=== PATIENT | male | born 1975 | race African-American/Black ===

== ENCOUNTER 2017-07-23 00:59 | Emergency (ER) | payer MEDICARE, MEDICAID ==
[2017-07-23] MEDS ORDERED: HYDROcodone/Acetaminophen 5/325 mg Tablet ONE (01:35)
[2017-07-23 01:43] LABS: #Eosinphils 0.2 thou/uL (0.0-0.7); #Lymphocytes 1.3 thou/uL (1.20-3.40); #Monocytes 0.9 thou/uL (0.11-0.59); #Neutrophils 4.9 thou/uL (1.40-6.50); %Basophils 0.3 % (0.0-1.0); %Lymphocytes 17.3 % (21.0-51.0); Hematocrit 48.6 % (42.0-52.0); Mean Platelet Volume 9.7 fL (7.4-10.4); Red Blood Cell (RBC) Count 5.46 mill/uL (4.70-6.10); White Blood Cell (WBC) Count 7.3 thou/uL (4.8-10.8)
[2017-07-23 02:07] LABS: Anion Gap 15 mmol/L (10-20); BUN (Urea Nitrogen) 10 mg/dL (8.9-20.6); Calc. Creatinine Clearance 0 mL/min (70-130); Carbon Dioxide 27 mmol/L (22-29); Chloride 102 mmol/L (98-107); Estimated GFR-MDRD 77
[2017-07-23 02:11] LABS: Lactic Acid - Sepsis 2.2 mmol/L (0.5-2.2)
[2017-07-23] MEDS ORDERED: Indomethacin 25 mg Capsule PO SCH (02:30)
--- NOTE | 2017-07-23 07:47 | RAD ---
4 VIEWS RIGHT KNEE: Date: 07/23/17 COMPARISON: None. HISTORY: Right knee pain that started this morning. FINDINGS: Four views of the right knee show no evidence of acute fracture or dislocation. A small knee effusio n is seen. There is a bipartite patella. Prepatellar soft tissue swelling is seen. No significant de generative changes are present. IMPRESSION: Soft tissue swelling without underlying acute osseous abnormality. POS: [facility]
== END 2017-07-23 02:40 | disposition home or self-care (01) ==
LOC: ERS 00:59
DX: M10.9 Gout, unspecified (principal); I11.0 Hypertensive heart disease with heart failure; I50.9 Heart failure, unspecified; F17.210 Nicotine dependence, cigarettes, uncomplicated
CPT/HCPCS: 36415; 80048; 83605; 85025

== ENCOUNTER 2017-09-21 02:30 | Emergency (ER) | payer MEDICARE, OTHER, MEDICAID ==
[2017-09-21] MEDS ORDERED: Morphine 4 MG/ML VIAL ONE (03:43)
[2017-09-21] MEDS ORDERED: predniSONE 20 MG TAB ONE (03:45)
== END 2017-09-21 04:10 | disposition home or self-care (01) ==
LOC: ERS 02:30
DX: M10.9 Gout, unspecified (principal); E78.00 Pure hypercholesterolemia, unspecified; I11.0 Hypertensive heart disease with heart failure; I50.9 Heart failure, unspecified; F17.210 Nicotine dependence, cigarettes, uncomplicated; Z79.84 Long term (current) use of oral hypoglycemic drugs; Z79.899 Other long term (current) drug therapy
CPT/HCPCS: 96372; J2270; J7506

== ENCOUNTER 2017-10-16 21:44 | Emergency (ER) | payer MEDICARE, OTHER, MEDICAID ==
[2017-10-16] MEDS ORDERED: Morphine 4 MG/ML VIAL ONE (23:05)
== END 2017-10-17 00:08 | disposition home or self-care (01) ==
LOC: ERS 21:44
DX: M10.9 Gout, unspecified (principal); I11.0 Hypertensive heart disease with heart failure; I50.9 Heart failure, unspecified; E11.9 Type 2 diabetes mellitus without complications; E78.00 Pure hypercholesterolemia, unspecified; F17.210 Nicotine dependence, cigarettes, uncomplicated
CPT/HCPCS: 96372; J2270

== ENCOUNTER 2017-10-19 14:27 | Emergency (ER) | payer MEDICARE, MEDICAID | END 2017-10-19 18:21 | disposition home or self-care (01) | LOC: ERS 14:27 | DX: T78.40XA Allergy, unspecified, initial encounter (principal); M10.9 Gout, unspecified; I11.0 Hypertensive heart disease with heart failure; I50.9 Heart failure, unspecified; E78.00 Pure hypercholesterolemia, unspecified; E10.9 Type 1 diabetes mellitus without complications; F17.210 Nicotine dependence, cigarettes, uncomplicated; Z79.899 Other long term (current) drug therapy | CPT/HCPCS: 99282 ==

== ENCOUNTER 2017-10-22 21:12 | Emergency (ER) | payer MEDICARE, MEDICAID ==
[2017-10-22] MEDS ORDERED: predniSONE 20 MG TAB ONE (22:00)
== END 2017-10-22 21:55 | disposition home or self-care (01) ==
LOC: ERS 21:12
DX: R21 Rash and other nonspecific skin eruption (principal); M10.9 Gout, unspecified; I11.0 Hypertensive heart disease with heart failure; I50.9 Heart failure, unspecified; E78.00 Pure hypercholesterolemia, unspecified; E11.9 Type 2 diabetes mellitus without complications; F17.210 Nicotine dependence, cigarettes, uncomplicated
CPT/HCPCS: 99282; J7506

== ENCOUNTER 2017-11-10 12:53 | Outpatient (CLI) | payer MEDICARE, MEDICAID | END 2017-11-10 12:54 | disposition home or self-care (01) | LOC: BICULT 12:53 | PROVIDERS: ATTEND Internal Medicine | DX: R31.0 Gross hematuria (principal); R10.9 Unspecified abdominal pain; J44.9 Chronic obstructive pulmonary disease, unspecified; I51.7 Cardiomegaly; N28.1 Cyst of kidney, acquired | CPT/HCPCS: 71046; 76770 ==

== ENCOUNTER 2017-11-15 15:10 | Emergency (ER) | payer MEDICARE, MEDICAID ==
--- NOTE | 2017-11-15 16:34 | RAD ---
RIGHT HAND THREE VIEWS: 11/15/17 HISTORY: Right hand swelling. FINDINGS: Ulna negative variant is noted. Cortical remodeling at the base of the fifth metacarpal has the appea melina of an old fracture. No acute fracture, dislocation, or radiopaque foreign bodies are apparent. Soft tissue swelling overlies the dorsum of the distal metacarpals. IMPRESSION: 1. Soft tissue swelling. 2. Suspected old injury of the fifth metacarpal. POS: [facility]
== END 2017-11-15 17:38 | disposition home or self-care (01) ==
LOC: ERS 15:10
DX: S60.221A Contusion of right hand, initial encounter (principal); I11.0 Hypertensive heart disease with heart failure; I50.9 Heart failure, unspecified; E11.9 Type 2 diabetes mellitus without complications; E78.5 Hyperlipidemia, unspecified; M10.9 Gout, unspecified; F17.210 Nicotine dependence, cigarettes, uncomplicated; Z71.6 Tobacco abuse counseling; W22.8XXA Striking against or struck by other objects, initial encounter
CPT/HCPCS: 99406

== ENCOUNTER 2017-12-13 17:32 | Inpatient (IN) | payer MEDICARE, MEDICAID ==
[2017-12-13 18:07] LABS: #Basophils 0.1 thou/uL (0.0-0.2); #Eosinphils 0.1 thou/uL (0.0-0.7); #Lymphocytes 1.4 thou/uL (1.20-3.40); #Monocytes 0.4 thou/uL (0.11-0.59); #Neutrophils 2.6 thou/uL (1.40-6.50); %Basophils 1.5 % (0.0-1.0); %Eosinophils 2.6 % (0.0-10.0); %Lymphocytes 31.3 % (21.0-51.0); %Neutrophils 55.6 % (42.0-75.0); Hemoglobin 14.1 g/dL (14.0-18.0); Mean Corpuscular HGB CONC 34.4 g/dL (32.0-36.0); Mean Corpuscular Hemoglobin 30.5 pg (27.0-31.0); Mean Corpuscular Volume 88.7 fl (80.0-94.0); Platelet Count 143 thou/uL (130-400); RBC Distribution Width 12.9 % (11.5-14.5); Red Blood Cell (RBC) Count 4.61 mill/uL (4.70-6.10); White Blood Cell (WBC) Count 4.6 thou/uL (4.8-10.8)
--- NOTE | 2017-12-13 18:22 | RAD ---
CHEST ONE VIEW 12/13/17 HISTORY: Chest pain. COMPARISON: Chest radiograph 11/10/17. FINDINGS: Heart size is markedly enlarged. Small effusions. Moderate interstitial and alveolar edema. IMPRESSION: Findings suggesting congestive heart failure with cardiomegaly, effusions, and moderate edema. POS: [facility]
[2017-12-13 18:27] LABS: ALT (SGPT) 15 U/L (8-55); AST (SGOT) 31 U/L (5-34); Albumin 4.3 g/dL (3.5-5.0); Alkaline Phosphatase 44 U/L (40-150); Anion Gap 14 mmol/L (10-20); BUN (Urea Nitrogen) 15 mg/dL (8.9-20.6); Bilirubin, Total 0.9 mg/dL (0.2-1.2); CK (CPK) 175 U/L (30-200); Calc. Creatinine Clearance 0 mL/min (70-130); Calcium 10.1 mg/dL (7.8-10.44); Carbon Dioxide 24 mmol/L (22-29); Chloride 104 mmol/L (98-107); Estimated GFR-MDRD 82; Globulin 3.3 g/dL (2.4-3.5); Glucose 115 mg/dL (70-105); Lipase 20 U/L (8-78); Potassium 4.9 mmol/L (3.5-5.1); Protein, Total 7.6 g/dL (6.0-8.3); Sodium 137 mmol/L (136-145)
[2017-12-13 18:32] LABS: Troponin I 0.402 ng/mL (< 0.028)
[2017-12-13] MEDS ORDERED: Enoxaparin Sodium 100 MG/ML SYRINGE ONE (19:23)
[2017-12-13] MEDS ORDERED: Aspirin 325 MG TAB ONE (19:23)
[2017-12-13 21:46] LABS: Critical Call Chem Troponin I RESULT DECREASING; Troponin I 0.401 ng/mL (< 0.028)
[2017-12-13 22:10] VITALS: BMI 33.7
[2017-12-13] MEDS ORDERED: Ondansetron HCl/PF 4 MG/2 ML Vial IVP PRN (22:28)
[2017-12-13] MEDS ORDERED: Ondansetron ODT 4 MG TAB SL PRN (22:28)
[2017-12-13] MEDS ORDERED: Nitroglycerin 0.4 MG TAB (25 Tab Bottle) SL PRN (23:02)
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
[2017-12-14 01:01] LABS: Critical Call Chem Troponin I RESULT DECREASING; Troponin I 0.344 ng/mL (< 0.028)
[2017-12-14 05:26] LABS: #Eosinphils 0.1 thou/uL (0.0-0.7); #Lymphocytes 1.6 thou/uL (1.20-3.40); #Monocytes 0.5 thou/uL (0.11-0.59); #Neutrophils 2.5 thou/uL (1.40-6.50); %Eosinophils 2.8 % (0.0-10.0); %Monocytes 9.9 % (0.0-10.0); %Neutrophils 52.3 % (42.0-75.0); Hemoglobin 14.3 g/dL (14.0-18.0); Mean Corpuscular HGB CONC 34.4 g/dL (32.0-36.0); Mean Corpuscular Hemoglobin 31.3 pg (27.0-31.0); Mean Platelet Volume 10.7 fL (7.4-10.4); Platelet Count 143 thou/uL (130-400); RBC Distribution Width 12.7 % (11.5-14.5); Red Blood Cell (RBC) Count 4.59 mill/uL (4.70-6.10); White Blood Cell (WBC) Count 4.8 thou/uL (4.8-10.8)
[2017-12-14 05:37] LABS: Anion Gap 12 mmol/L (10-20); BUN (Urea Nitrogen) 16 mg/dL (8.9-20.6); Calc. Creatinine Clearance 121 mL/min (70-130); Carbon Dioxide 28 mmol/L (22-29); Cardiac Risk 5.1 (Less than 4.5); Chloride 103 mmol/L (98-107); Cholesterol 158 mg/dl (< 200 Desired); Estimated GFR-MDRD 78; Glucose 170 mg/dL (70-105); HDL Cholesterol 31 mg/dL (>60 Neg Risk); LDL Cholesterol, Calculated 66 mg/dL; Potassium 3.6 mmol/L (3.5-5.1); Sodium 139 mmol/L (136-145); Triglycerides 304 mg/dL (Less than 150)
[2017-12-14 06:15] LABS: Digoxin 0.44 ng/mL (0.8-2.0)
[2017-12-14] MEDS ORDERED: Sacubitril 49 MG/Valsartan 51 MG TABLET PO SCH (09:00)
[2017-12-14] MEDS ORDERED: Furosemide 20 MG TAB PO SCH (09:00)
[2017-12-14] MEDS ORDERED: Enoxaparin Sodium 120 MG/0.8 ML SYRINGE SC SCH (09:00)
[2017-12-14] MEDS: Potassium Chloride 10 MEQ TAB PO SCH (09:24)
[2017-12-14] MEDS: Spironolactone 25 MG TAB PO SCH (09:24)
[2017-12-14] MEDS: Carvedilol 25 MG TAB PO SCH ×2 (09:24→17:06)
[2017-12-14] MEDS: Famotidine/PF 20 mg/2ml Vial SLOW IVP SCH ×2 (09:25→21:08)
[2017-12-14] MEDS: Digoxin 0.125 MG TAB PO SCH (09:25)
[2017-12-14] MEDS: Aspirin 81 mg Enteric Coated Tablet PO SCH (09:25)
[2017-12-14] MEDS ORDERED: Dextrose 5% in Water 1,000 ML IV PRN (13:25)
[2017-12-14] MEDS ORDERED: Dextrose 50% Abboject 50 ML SYRINGE SLOW IVP PRN (13:25)
[2017-12-14] MEDS: Furosemide 40 MG/4 ML VIAL SLOW IVP SCH (14:04)
--- NOTE | 2017-12-14 14:41 | PDOC.PN ---
- Subjective Encounter Start Date: 12/14/17 Encounter Start Time: 08:00 Pt seen for followup re: NSTEMI. Denies chest pain, reports SOBOE. No nausea or vomiting. - Objective Resuscitation Status: Resuscitation Status FULL:Full Resuscitation MAR Reviewed: Yes Vital Signs & Weight: Vital Signs (12 hours) Temp Pulse Resp BP BP Pulse Ox 12/14/17 09:20 97.9 F 88 20 103/82 93 L 12/14/17 04:00 98.0 F 87 20 121/78 97 Weight Weight 240 lb 9.6 oz I&O: 12/13/17 12/14/17 12/15/17 06:59 06:59 06:59 Intake Total 1200 Output Total 300 Balance 900 Result Diagrams: 12/14/17 04:50 12/14/17 04:50 EKG Reviewed by me: Yes (Tele: A-paced rhythm) Phys Exam - Physical Examination Obese HEENT: PERRLA, moist MMs, sclera anicteric, oral pharynx no lesions Neck: no nodes, no JVD, supple, full ROM Respiratory: no wheezing, no rhonchi Bibasal crackles Cardiovascular: RRR, no rub Gastrointestinal: soft, non-tender, no distention, positive bowel sounds Musculoskeletal: pulses present Neurological: moves all 4 limbs Psychiatric: normal affect, A&O x 3 Skin: no rash Dx/Plan (1) NSTEMI (non-ST elevated myocardial infarction) Code(s): I21.4 - NON-ST ELEVATION (NSTEMI) MYOCARDIAL INFARCTION Status: Acute (2) Acute on chronic systolic (congestive) heart failure Code(s): I50.23 - ACUTE ON CHRONIC SYSTOLIC (CONGESTIVE) HEART FAILURE Status : Acute (3) Tobacco abuse Code(s): Z72.0 - TOBACCO USE Status: Chronic (4) Gout Code(s): M10.9 - GOUT, UNSPECIFIED Status: Chronic Qualifiers: Gout site: unspecified site Chronicity: unspecified (5) Nonischemic cardiomyopathy Code(s): I42.9 - CARDIOMYOPATHY, UNSPECIFIED Status: Chronic - Plan * . Continue Lovenox, aspirin. Await cardiology consult. IV furosemide. Pt counseled re: tobacco cessation. Monitor vital signs, titrate antihypertensives as needed. Review of Systems - Review of Systems Constitutional: negative: fever, chills, sweats, weakness, malaise Respiratory: SOB with Excertion. negative: Cough, Dry, Shortness of Breath, Hemoptysis, Pleuritic Pain, Sputum, Wheezing Cardiovascular: negative: chest pain, palpitations, orthopnea, paroxysmal nocturnal dyspnea, edema, light headedness Gastrointestinal: negative: Nausea, Vomiting, Abdominal Pain, Diarrhea, Constipation, Melena, Hematochezia Genitourinary: negative: Dysuria, Frequency, Incontinence, Hematuria, Retention - Medications/Allergies Allergies/Adverse Reactions: Allergies Allergy/AdvReac Type Severity Reaction Status Date / Time No Known Allergies Allergy Verified 12/13/17 22:01 Medications: Current Medications Aspirin (Ecotrin) 81 mg PO DAILY [facility] Last Admin: 12/14/17 09:25 Dose: 81 mg Atorvastatin Calcium (Lipitor) 10 mg PO [facility]) [facility] Last Admin: 12/14/17 09:24 Dose: 25 mg Dextrose/Water (Dextrose 50%) 25 gm SLOW IVP PRN PRN PRN Reason: Hypoglycemia Digoxin (Lanoxin) 0.125 mg PO DAILY [facility] Last Admin: 12/14/17 09:25 Dose: 0.125 mg Enoxaparin Sodium (Lovenox) 110 mg SC 0900,2100 [facility] Famotidine (Pepcid) 20 mg SLOW IVP Q12HR [facility] Last Admin: 12/14/17 09:25 Dose: 20 mg Furosemide (Lasix) 40 mg SLOW IVP 0600,1400 [facility] Last Admin: 12/14/17 14:04 Dose: 40 mg [facility]) [facility] Glucagon (Glucagon) 1 mg IM PRN PRN PRN Reason: Hypoglycemia Dextrose/Water (D5w) 1,000 mls @ 0 mls/hr IV .Q0M PRN; As Directed PRN Reason: Hypoglycemia Insulin Human Lispro (Humalog) 0 units SC .MILD SLIDING SCALE PRN PRN Reason: Mild Correctional Scale [facility]Gl[facility]ophage) [facility] Morphine Sulfate (Morphine) 2 mg SLOW IVP Q5MIN PRN PRN Reason: Chest Pain Nitroglycerin (Nitrostat) 0.4 mg SL Q5MIN PRN PRN Reason: Chest Pain Potassium Chlor[facility] ([facility]-Con 10) [facility] Admin: 12/14/17 09:24 Dose: 10 meq Sacubitril/Valsartan (Entresto 49 Mg-51 Mg Tablet) 1 tab PO DAILY [facility] Last Admin: 12/14/17 09:25 Dose: 1 tab Sodium Chloride (Flush - Normal Saline) 10 ml IVF Q12HR BRANDI Sodium Chloride (Flush - Normal Saline) 10 ml IVF PRN PRN PRN Reason: Saline Flush Spironolactone (Aldactone) 25 mg PO [facility] Last Admin: 12/14/17 09:24 Dose: 25 mg
[2017-12-14] MEDS: glipiZIDE 5 MG TAB PO SCH (15:11)
[2017-12-14] MEDS: metFORMIN 500 MG TAB PO SCH ×2 (15:11→17:06)
[2017-12-14] MEDS ORDERED: Albuterol Sulfate 2.5 mg/3 ml Neb NEB PRN (20:08)
[2017-12-14] MEDS ORDERED: Atorvastatin Calcium 10 MG TAB PO SCH (21:00)
[2017-12-14] MEDS ORDERED: Famotidine 40 MG/4 ML VIAL SLOW IVP SCH (21:15)
[2017-12-14] MEDS: Sacubitril 49 MG/Valsartan 51 MG TABLET PO SCH (21:22)
[2017-12-14] MEDS: HumaLOG 300 UNITS/3 ML VIAL SC PRN (21:22)
[2017-12-15] MEDS: Furosemide 40 MG/4 ML VIAL SLOW IVP SCH ×2 (05:41→13:56)
[2017-12-15 05:51] LABS: #Eosinphils 0.1 thou/uL (0.0-0.7); #Lymphocytes 1.3 thou/uL (1.20-3.40); #Monocytes 0.4 thou/uL (0.11-0.59); #Neutrophils 3.2 thou/uL (1.40-6.50); %Basophils 0.3 % (0.0-1.0); %Eosinophils 2.2 % (0.0-10.0); %Lymphocytes 26.3 % (21.0-51.0); %Monocytes 7.2 % (0.0-10.0); Hemoglobin 14.1 g/dL (14.0-18.0); Mean Corpuscular HGB CONC 35.3 g/dL (32.0-36.0); Mean Corpuscular Hemoglobin 32.1 pg (27.0-31.0); Mean Corpuscular Volume 90.8 fl (80.0-94.0); Mean Platelet Volume 10.5 fL (7.4-10.4); Platelet Count 144 thou/uL (130-400); RBC Distribution Width 12.8 % (11.5-14.5)
[2017-12-15 05:58] LABS: Anion Gap 12 mmol/L (10-20); BUN (Urea Nitrogen) 15 mg/dL (8.9-20.6); Calc. Creatinine Clearance 120 mL/min (70-130); Calcium 11.2 mg/dL (7.8-10.44); Carbon Dioxide 28 mmol/L (22-29); Chloride 104 mmol/L (98-107); Estimated GFR-MDRD 77; Glucose 173 mg/dL (70-105); Potassium 3.8 mmol/L (3.5-5.1); Sodium 140 mmol/L (136-145)
--- NOTE | 2017-12-15 06:14 | CON ---
DATE OF CONSULTATION: 12/14/2017 PRIMARY CYTOPATHOLOGY TECHNOLOGIST: Dr. Gotti. REASON FOR ADMISSION: Congestive heart failure, chest pain, increased troponin level. HISTORY OF PRESENT ILLNESS: Mr. Watts is a very pleasant 42-year-old gentleman with history of jeison re nonischemic cardiomyopathy. He came to the hospital last night, says his breathing was not quite as good as usual and some discomfort in his chest. The chest discomfort was mild, but he wondered if perhaps he had fluid in his lungs. Troponin levels were checked and they were mildly elevated, as t hey really always are, but he was admitted for further evaluation and observation. REVIEW OF SYSTEMS: Constitutional: No significant weight gain or loss. Vision: No changes. Heari ng: No changes. Pulmonary: Positive for shortness of breath. Cardiac: As outlined above. Gastro intestinal: No nausea, vomiting, diarrhea. Skin: No rashes. Neurologic: No unilateral weakness o r numbness. Psychiatric: No unusual depression or anxiety. Hematologic: No unusual bruising. Gen itourinary: No burning with urination. PAST MEDICAL HISTORY: 1. Nonischemic cardiomyopathy with ejection fraction 15%-20%. 2. Previous defibrillator. 3. Nonobstructive coronary artery disease. MEDICATIONS: At home included, 1. Entresto. 2. Simvastatin. 3. Carvedilol. 4. Spironolactone. 5. Aspirin. 6. Digoxin. PHYSICAL EXAMINATION: GENERAL: A pleasant 42-year-old gentleman in no distress. VITAL SIGNS: Blood pressure is 143/78, pulse 90 and regular. LUNGS: Clear. CARDIOVASCULAR: Normal S1, normal S2. ABDOMEN: Soft, nontender. EXTREMITIES: No clubbing or cyanosis. There is no edema. SKIN: Warm and dry. PSYCHIATRIC: Mood and affect normal. NEUROLOGIC: Grossly normal. IMAGING: Chest x-ray: Pulmonary vascular congestion. ASSESSMENT: 1. Congestive heart failure, systolic, acute on chronic. 2. Slight increased troponin levels are looking back at the notes, they are always close to this ran ge, this does not represent a myocardial infarction more likely related to heart failure. PLAN: 1. Increase the Entresto. 2. He is on IV diuretics. 3. Probably go home tomorrow. Dr. Gotti will see the patient tomorrow.
[2017-12-15] MEDS ORDERED: Famotidine 40 MG/4 ML VIAL SLOW IVP SCH (09:00)
[2017-12-15] MEDS ORDERED: Enoxaparin Sodium 40 MG/0.4 ML SYRINGE SC SCH (09:00)
[2017-12-15] MEDS: glipiZIDE 5 MG TAB PO SCH (09:44)
[2017-12-15] MEDS: metFORMIN 500 MG TAB PO SCH ×2 (09:44→16:21)
[2017-12-15] MEDS: Potassium Chloride 10 MEQ TAB PO SCH (09:44)
[2017-12-15] MEDS: Carvedilol 25 MG TAB PO SCH ×2 (09:44→16:21)
[2017-12-15] MEDS: Aspirin 81 mg Enteric Coated Tablet PO SCH (09:45)
[2017-12-15] MEDS: Sacubitril 49 MG/Valsartan 51 MG TABLET PO SCH (09:45)
[2017-12-15] MEDS: Digoxin 0.125 MG TAB PO SCH (09:45)
[2017-12-15] MEDS: Spironolactone 25 MG TAB PO SCH (09:45)
[2017-12-15] MEDS: HumaLOG 300 UNITS/3 ML VIAL SC PRN (14:01)
[2017-12-15 16:20] VITALS: BP 116/75; TEMP 97.7
--- NOTE | 2017-12-15 17:40 | EKG ---
Test Reason : Blood Pressure : / mmHG Vent. Rate : 085 BPM Atrial Rate : 085 BPM P-R Int : 220 ms QRS Dur : 132 ms QT Int : 382 ms P-R-T Axes : 063 016 090 degrees QTc Int : 454 ms Dual chamber pacemaker atria sensed ventricular paced When compared with ECG of 13-DEC-2017 17:47, (Unconfirmed) Vent. rate has increased BY [address] Joes MANDUJANO ([id number]) on 12/15/2017 5:39:52 PM Referred By: MARGRET Confirmed By:DR. Jose MANDUJANO
--- NOTE | 2017-12-15 20:27 | DIS ---
PRIMARY CARE PROVIDER: Paola Hernandez NP. DATE OF ADMISSION: 12/13/2017 DATE OF DISCHARGE: 12/15/2017 DISCHARGE DIAGNOSIS: Acute on chronic systolic congestive heart failure. CONDITION OF PATIENT ON THE DAY OF DISCHARGE: Stable. I assessed Mr. Watts on the day of discharge . He denies any chest pain or shortness of breath. Vital signs are stable, he is saturating well on room air. S1 and S2 are heard, regular. Lungs are clear to auscultation bilaterally. DISCHARGE MEDICATIONS: Aspirin 81 mg daily; Coreg 25 mg 2 times a day; digoxin 125 mcg daily; Lasix 40 mg daily, started during this hospitalization; glipizide 5 mg daily; metformin 500 mg 2 times a da y; potassium chloride 10 mEq daily; simvastatin 20 mg at bedtime; spironolactone 25 mg daily; Entrest o 1 tablet 2 times a day, increased to b.i.d. during this hospitalization. HOSPITAL COURSE: Mr. Watts is a pleasant 42-year-old gentleman, who was admitted to [facility] for acute on chronic congestive heart failure, systolic. He was seen by Cardiolog y Service. He improved with intravenous diuretics, subsequently stepped down to oral diuretics. He is being discharged home in a stable condition. He is advised to follow up with his primary care provider in 3-5 days. On the day of discharge, he has a white count of 5000, hemoglobin 14.1, platelet count 144,000, cosme l electrolytes and normal creatinine. During this hospitalization, he had triglycerides of 304, chol esterol 158, LDL cholesterol 66, HDL cholesterol 31. His digoxin level was low at 0.44. Many thanks for allowing me to participate in your patient's care. Please feel free to contact me wi th any questions or concerns. DISCHARGE DESTINATION: Home. TOTAL AMOUNT OF TIME SPENT COORDINATING THIS DISCHARGE: 33 minutes. ADDENDUM: Mr. Watts is not being discharged home on Lasix 40 mg daily. Heart Failure Clinic records were revi ewed and he was started on bumetanide 2 mg 2 times a day because he was not responding well to furose mide. He is being discharged home on bumetanide 2 mg 2 times a day.
--- NOTE | 2017-12-17 15:57 | EKG ---
Test Reason : Blood Pressure : / mmHG Vent. Rate : 082 BPM Atrial Rate : 082 BPM P-R Int : 176 ms QRS Dur : 162 ms QT Int : 422 ms P-R-T Axes : 056 019 104 degrees QTc Int : 493 ms Atrial-sensed ventricular-paced rhythm Abnormal ECG Confirmed by FILEMON MALDONADO, MATTHEW ([id number]), editorial intern HOPE COY ([id number]) on 12/17/2017 3:56:25 PM Referred By: Confirmed By:MATTHEW COLBERT MD
== END 2017-12-15 16:40 | disposition home or self-care (01) | DRG 291 ==
LOC: ERS 17:32 → 2NO 19:25
PROVIDERS: ADMIT Internal Medicine Infectious Disease; ATTEND Internal Medicine Infectious Disease
DX: I13.0 Hypertensive heart and chronic kidney disease with heart failure and stage 1 through stage 4 chronic kidney disease, or unspecified chronic kidney disease (principal); I50.23 Acute on chronic systolic (congestive) heart failure; E11.22 Type 2 diabetes mellitus with diabetic chronic kidney disease; I42.9 Cardiomyopathy, unspecified; I25.10 Atherosclerotic heart disease of native coronary artery without angina pectoris; Z95.810 Presence of automatic (implantable) cardiac defibrillator; F17.210 Nicotine dependence, cigarettes, uncomplicated; E78.00 Pure hypercholesterolemia, unspecified; N18.2 Chronic kidney disease, stage 2 (mild); Z79.84 Long term (current) use of oral hypoglycemic drugs
CPT/HCPCS: 36415; 36416; 71045; 80048; 80053; 80061; 80162; 82550; 82553; 83690; 84484; 85025; 93005; 93010; 93306; 93798; 94640; 96372; A4216; J1650; J1940; J7620; S0028

== ENCOUNTER 2018-03-07 20:45 | Emergency (ER) | payer MEDICARE, MEDICAID | END 2018-03-07 22:36 | disposition home or self-care (01) | LOC: ERS 20:45 | DX: M25.422 Effusion, left elbow (principal); E11.9 Type 2 diabetes mellitus without complications; E78.5 Hyperlipidemia, unspecified; I11.0 Hypertensive heart disease with heart failure; I50.9 Heart failure, unspecified; M10.9 Gout, unspecified; F17.210 Nicotine dependence, cigarettes, uncomplicated | CPT/HCPCS: 99283 ==

== ENCOUNTER 2018-07-01 21:41 | Emergency (ER) | payer MEDICARE, OTHER ==
[2018-07-01] MEDS ORDERED: Ketorolac Tromethamine 30 MG/ML VIAL ONE (23:08)
== END 2018-07-01 23:55 | disposition home or self-care (01) ==
LOC: ERS 21:41
DX: S60.221A Contusion of right hand, initial encounter (principal); I11.0 Hypertensive heart disease with heart failure; I50.9 Heart failure, unspecified; M10.9 Gout, unspecified; F17.210 Nicotine dependence, cigarettes, uncomplicated; Z79.899 Other long term (current) drug therapy; Z79.82 Long term (current) use of aspirin; Z79.84 Long term (current) use of oral hypoglycemic drugs; W22.01XA Walked into wall, initial encounter
CPT/HCPCS: 96372; J1885

== ENCOUNTER 2018-08-04 18:13 | Inpatient (IN) | payer MEDICARE, MEDICAID ==
[2018-08-04 19:23] LABS: #Eosinphils 0.2 thou/uL (0.0-0.7); #Lymphocytes 1.2 thou/uL (1.20-3.40); #Monocytes 0.3 thou/uL (0.11-0.59); %Basophils 0.8 % (0.0-1.0); %Eosinophils 3.8 % (0.0-10.0); %Lymphocytes 26.1 % (21.0-51.0); %Monocytes 6.4 % (0.0-10.0); %Neutrophils 62.9 % (42.0-75.0); Hemoglobin 14.3 g/dL (14.0-18.0); Mean Corpuscular HGB CONC 34.4 g/dL (32.0-36.0); Mean Corpuscular Hemoglobin 31.6 pg (27.0-31.0); Mean Corpuscular Volume 91.6 fL (78.0-98.0); Mean Platelet Volume 10.3 fL (7.4-10.4); Platelet Count 142 thou/uL (130-400); RBC Distribution Width 13.1 % (11.5-14.5); Red Blood Cell (RBC) Count 4.55 mill/uL (4.70-6.10); White Blood Cell (WBC) Count 4.7 thou/uL (4.8-10.8)
[2018-08-04 19:33] LABS: ALT (SGPT) 10 U/L (8-55); AST (SGOT) 18 U/L (5-34); Albumin 4.5 g/dL (3.5-5.0); Alkaline Phosphatase 48 U/L (40-150); Anion Gap 14 mmol/L (10-20); BUN (Urea Nitrogen) 18 mg/dL (8.9-20.6); Bilirubin, Total 1.5 mg/dL (0.2-1.2); CK (CPK) 191 U/L (30-200); Calc. Creatinine Clearance 0 mL/min (70-130); Carbon Dioxide 28 mmol/L (22-29); Chloride 102 mmol/L (98-107); Estimated GFR-MDRD 66; Glucose 156 mg/dL (70-105); Potassium 3.7 mmol/L (3.5-5.1); Protein, Total 7.5 g/dL (6.0-8.3); Sodium 140 mmol/L (136-145)
[2018-08-04 19:42] LABS: Troponin I 0.268 ng/mL (< 0.028)
--- NOTE | 2018-08-04 20:13 | RAD ---
CHEST TWO VIEWS: HISTORY: Chest pain. Volume overload. COMPARISON: Radiograph from 2017. FINDINGS: The heart size is markedly enlarged. Chronic effusions. No pneumothorax. Cardiac device is similar . IMPRESSION: Marked cardiomegaly, mild edema, and small effusions. POS: [facility]
[2018-08-04] MEDS ORDERED: Furosemide 40 MG/4 ML VIAL ONE (20:41)
[2018-08-04] MEDS ORDERED: cloNIDine 0.1 MG TAB PO PRN (23:21)
[2018-08-04] MEDS ORDERED: Ondansetron ODT 4 MG TAB PO PRN (23:21)
[2018-08-04] MEDS ORDERED: Dextrose 5% in Water 1,000 ML IV PRN (23:21)
[2018-08-04] MEDS ORDERED: Dextrose 50% Abboject 50 ML SYRINGE SLOW IVP PRN (23:21)
[2018-08-04] MEDS ORDERED: Ondansetron PF 4 MG/2 ML Vial IVP PRN (23:21)
[2018-08-04] MEDS ORDERED: hydrALAZINE 20 MG/ML VIAL SLOW IVP PRN (23:21)
[2018-08-04] MEDS ORDERED: HumaLOG 300 UNITS/3 ML VIAL SC PRN ×2 (23:21)
[2018-08-04] MEDS ORDERED: Acetaminophen 500 MG TAB PO PRN (23:21)
[2018-08-04 23:55] VITALS: BMI 33.5
[2018-08-05 00:05] LABS: Troponin I 0.281 ng/mL (< 0.028)
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
[2018-08-05 04:02] LABS: Anion Gap 11 mmol/L (10-20); BUN (Urea Nitrogen) 18 mg/dL (8.9-20.6); Calc. Creatinine Clearance 104 mL/min (70-130); Calcium 9.5 mg/dL (7.8-10.44); Carbon Dioxide 29 mmol/L (22-29); Chloride 102 mmol/L (98-107); Estimated GFR-MDRD 68; Glucose 190 mg/dL (70-105); Magnesium 1.7 mg/dL (1.6-2.6); Potassium 3.3 mmol/L (3.5-5.1); Sodium 139 mmol/L (136-145); Uric Acid 6.4 mg/dL (3.5-7.2)
[2018-08-05 04:57] LABS: Band 5 % (5-11); Eosinophils 4 % (0-10); Hemoglobin 13.8 g/dL (14.0-18.0); Lymphocytes 33 % (21-51); MDiff Complete? YES; Mean Corpuscular HGB CONC 34.2 g/dL (32.0-36.0); Mean Corpuscular Hemoglobin 31.5 pg (27.0-31.0); Mean Corpuscular Volume 91.9 fL (78.0-98.0); Mean Platelet Volume 11.6 fL (7.4-10.4); Monocytes 11 % (0-10); Neutrophil 47 % (42-75); Platelet Count 145 thou/uL (130-400); RBC Distribution Width 13.1 % (11.5-14.5); Red Blood Cell (RBC) Count 4.39 mill/uL (4.70-6.10); White Blood Cell (WBC) Count 4.8 thou/uL (4.8-10.8)
[2018-08-05] MEDS: Furosemide 40 MG/4 ML VIAL SLOW IVP SCH ×2 (06:14→14:40)
[2018-08-05] MEDS: Sacubitril 49 MG/Valsartan 51 MG TABLET PO SCH ×2 (08:16→22:58)
[2018-08-05] MEDS: Carvedilol 25 MG TAB PO SCH ×2 (08:17→17:04)
[2018-08-05] MEDS: metFORMIN 500 MG TAB PO SCH ×2 (08:17→17:04)
[2018-08-05] MEDS: Potassium Chloride 10 MEQ TAB PO SCH (08:17)
[2018-08-05] MEDS: Digoxin 0.125 MG TAB PO SCH (08:17)
[2018-08-05] MEDS: Spironolactone 25 MG TAB PO SCH (08:17)
[2018-08-05] MEDS: Famotidine 20 MG TAB PO SCH ×2 (08:17→21:41)
[2018-08-05] MEDS: glipiZIDE 5 MG TAB PO SCH (08:17)
--- NOTE | 2018-08-05 16:37 | PDOC.PN ---
- Subjective Encounter Start Date: 08/05/18 Encounter Start Time: 10:00 Subjective: pt up in bed no complains - Objective Resuscitation Status: Resuscitation Status FULL:Full Resuscitation Vital Signs & Weight: Vital Signs (12 hours) Temp Pulse Resp BP Pulse Ox 08/05/18 15:46 97.7 F 62 20 118/83 97 08/05/18 11:23 98.0 F 66 16 101/79 98 08/05/18 08:17 80 08/05/18 07:54 97.4 F L 72 16 103/89 99 Weight Weight 233 lb 4.8 oz I&O: 08/04/18 08/05/18 08/06/18 06:59 06:59 06:59 Intake Total 244 Output Total 450 Balance -206 Result Diagrams: 08/05/18 01:39 08/05/18 01:39 Additional Labs: Accuchecks 08/05/18 08/05/18 10:30 05:42 POC Glucose 144 H 130 H Phys Exam - Physical Examination Respiratory: no wheezing, no rales, no rhonchi, wheezing present, clear to auscultation bilateral Cardiovascular: RRR, no significant murmur, no rub, gallop, irregular Gastrointestinal: soft, non-tender, no distention, positive bowel sounds Musculoskeletal: no edema, pulses present, edema present Dx/Plan (1) Acute on chronic systolic (congestive) heart failure Code(s): I50.23 - ACUTE ON CHRONIC SYSTOLIC (CONGESTIVE) HEART FAILURE Status : Acute (2) CKD (chronic kidney disease) stage 2, GFR 60-89 ml/min Code(s): N18.2 - CHRONIC KIDNEY DISEASE, STAGE 2 (MILD) Status: Chronic (3) Tobacco abuse Code(s): Z72.0 - TOBACCO USE Status: Chronic - Plan pt has been drinking a lot of soda water -: does not take his meds all the time -: will check echo today -: will conitnue lasix * . Review of Systems - Review of Systems Respiratory: negative: Cough, Dry, Shortness of Breath, Hemoptysis, SOB with Excertion, Pleuritic Pain, Sputum, Wheezing Cardiovascular: negative: chest pain, palpitations, orthopnea, paroxysmal nocturnal dyspnea, edema, light headedness, other Gastrointestinal: negative: Nausea, Vomiting, Abdominal Pain, Diarrhea, Constipation, Melena, Hematochezia, Other Genitourinary: negative: Dysuria, Frequency, Incontinence, Hematuria, Retention , Other - Medications/Allergies Allergies/Adverse Reactions: Allergies Allergy/AdvReac Type Severity Reaction Status Date / Time No Known Allergies Allergy Verified 08/05/18 04:10 Medications: Current Medications Acetaminophen (Tylenol) 1,000 mg PO Q6H PRN PRN Reason: Mild Pain (1-3) Aspirin (Aspirin Chewable) 81 mg PO DAILY [facility] Last Admin: 08/05/18 08:16 Dose: 81 mg Atorvastatin Calcium (Lipitor) 10 mg PO [facility] Admin: 08/05/18 08:17 Dose: 25 mg Clonidine (Catapres) 0.1 mg PO Q4H PRN PRN Reason: SBP Greater Than 180 Dextrose/Water (Dextrose 50%) 25 gm SLOW IVP PRN PRN PRN Reason: Hypoglycemia Digoxin (Lanoxin) 0.125 mg PO DAILY [facility] Last Admin: 08/05/18 08:17 Dose: 0.125 mg Famotidine (Pepcid) 20 mg PO BID [facility] Last Admin: 08/05/18 08:17 Dose: 20 mg Furosemide (Lasix) 40 mg SLOW IVP 0600,1400 [facility] Last Admin: 08/05/18 14:40 Dose: 40 mg [facility] Last Admin: 08/05/18 08:17 Dose: 5 mg Glucagon (Glucagon) 1 mg IM PRN PRN PRN Reason: Hypoglycemia Hydralazine HCl (Apresoline) 10 mg SLOW IVP Q4H PRN PRN Reason: SBP > 180 and HR < 70 Dextrose/Water (D5w) 1,000 mls @ 0 mls/hr IV .Q0M PRN PRN Reason: Hypoglycemia Insulin Human Lispro (Humalog) 0 units SC .MILD SLIDING SCALE PRN PRN Reason: Mild Correctional Scale Insulin Human Lispro (Humalog) 0 units SC .BEDTIME SLIDING SC PRN PRN Reason: Bedtime Correctional Scale [facility]) [facility] Last Admin: 08/05/18 08:17 Dose: 500 mg Ondansetron HCl (Zofran Odt) 4 mg PO Q6H PRN PRN Reason: Nausea/Vomiting Ondansetron HCl (Zofran) 4 mg IVP Q6H PRN PRN Reason: Nausea/Vomiting Potassium Chloride (Klor-Con 10) 10 meq PO QA-[facility] Last Admin: 08/05/18 08:17 Dose: 10 meq Sacubitril/Valsartan (Entresto 49 Mg-51 Mg Tablet) 1 tab PO BID [facility] Last Admin: 08/05/18 08:16 Dose: 1 tab Spironolactone (Aldactone) 25 mg PO DAILY [facility] Last Admin: 08/05/18 08:17 Dose: 25 mg
[2018-08-05] MEDS ORDERED: Potassium Chloride 20 MEQ TAB PO SCH (16:45)
[2018-08-05] MEDS: Atorvastatin Calcium 10 MG TAB PO SCH (21:41)
[2018-08-06] MEDS: Furosemide 40 MG/4 ML VIAL SLOW IVP SCH ×2 (05:55→13:05)
[2018-08-06] MEDS: Carvedilol 25 MG TAB PO SCH ×2 (08:34→16:05)
[2018-08-06] MEDS: Potassium Chloride 10 MEQ TAB PO SCH (08:34)
[2018-08-06] MEDS: metFORMIN 500 MG TAB PO SCH ×2 (08:34→16:05)
[2018-08-06] MEDS: glipiZIDE 5 MG TAB PO SCH (08:34)
[2018-08-06] MEDS: Digoxin 0.125 MG TAB PO SCH (08:35)
[2018-08-06] MEDS: Spironolactone 25 MG TAB PO SCH (08:36)
[2018-08-06] MEDS: Famotidine 20 MG TAB PO SCH ×2 (08:36→20:03)
[2018-08-06] MEDS: Sacubitril 49 MG/Valsartan 51 MG TABLET PO SCH ×2 (08:36→20:03)
--- NOTE | 2018-08-06 14:54 | PDOC.PN ---
- Subjective Encounter Start Date: 08/06/18 Encounter Start Time: 10:00 Subjective: pt up in bed feels better today - Objective Resuscitation Status: Resuscitation Status FULL:Full Resuscitation Vital Signs & Weight: Vital Signs (12 hours) Temp Pulse Pulse Pulse Resp BP BP 08/06/18 12:39 60 60 101/81 112/87 08/06/18 12:00 08/06/18 11:45 97.7 F 62 16 08/06/18 08:35 64 08/06/18 07:51 97.7 F 60 16 08/06/18 04:07 98.1 F 71 16 BP Pulse Ox 08/06/18 12:39 08/06/18 12:00 98 08/06/18 11:45 101/77 96 08/06/18 08:35 08/06/18 07:51 107/85 98 08/06/18 04:07 110/90 95 Weight Weight 234 lb 3.2 oz I&O: 08/05/18 08/06/18 08/07/18 06:59 06:59 06:59 Intake Total 244 1355 600 Output Total 450 1500 800 Balance -206 -145 -200 Result Diagrams: 08/05/18 01:39 08/05/18 01:39 Additional Labs: Accuchecks 08/06/18 08/06/18 08/05/18 11:14 06:38 20:36 POC Glucose 114 H 141 H 142 H 08/05/18 16:43 POC Glucose 107 Phys Exam - Physical Examination HEENT: PERRLA, moist MMs, sclera anicteric, TM's clear, oral pharynx no lesions , 2+ tonsils Neck: no nodes, no JVD, supple, full ROM Respiratory: no wheezing, no rales, no rhonchi, wheezing present, clear to auscultation bilateral Cardiovascular: RRR, no significant murmur, no rub, gallop, irregular Dx/Plan (1) Acute on chronic systolic (congestive) heart failure Code(s): I50.23 - ACUTE ON CHRONIC SYSTOLIC (CONGESTIVE) HEART FAILURE Status : Acute (2) CKD (chronic kidney disease) stage 2, GFR 60-89 ml/min Code(s): N18.2 - CHRONIC KIDNEY DISEASE, STAGE 2 (MILD) Status: Chronic (3) Tobacco abuse Code(s): Z72.0 - TOBACCO USE Status: Chronic - Plan echo pending -: pt states he feels much better -: will continue iv lasix for one more day but will decrease to daily * . Review of Systems - Review of Systems Respiratory: negative: Cough, Dry, Shortness of Breath, Hemoptysis, SOB with Excertion, Pleuritic Pain, Sputum, Wheezing Cardiovascular: negative: chest pain, palpitations, orthopnea, paroxysmal nocturnal dyspnea, edema, light headedness, other Gastrointestinal: negative: Nausea, Vomiting, Abdominal Pain, Diarrhea, Constipation, Melena, Hematochezia, Other - Medications/Allergies Allergies/Adverse Reactions: Allergies Allergy/AdvReac Type Severity Reaction Status Date / Time No Known Allergies Allergy Verified 08/05/18 04:10 Medications: Current Medications Acetaminophen (Tylenol) 1,000 mg PO Q6H PRN PRN Reason: Mild Pain (1-3) Aspirin (Aspirin Chewable) 81 mg PO DAILY [facility] Last Admin: 08/06/18 08:35 Dose: 81 mg Atorvastatin Calcium (Lipitor) 10 mg PO HS [facility] Last Admin: 08/05/18 21:41 Dose: 10 mg Carvedilol (Coreg) 25 mg PO BID-[facility] Last Admin: 08/06/18 08:34 Dose: 25 mg Clonidine (Catapres) 0.1 mg PO Q4H PRN PRN Reason: SBP Greater Than 180 Dextrose/Water (Dextrose 50%) 25 gm SLOW IVP PRN PRN PRN Reason: Hypoglycemia Digoxin (Lanoxin) 0.125 mg PO DAILY [facility] Last Admin: 08/06/18 08:35 Dose: 0.125 mg Famotidine (Pepcid) 20 mg PO BID [facility] Last Admin: 08/06/18 08:36 Dose: 20 mg Furosemide (Lasix) 40 mg SLOW IVP 0600,1400 [facility] Last Admin: 08/06/18 13:05 Dose: 40 mg Glipizide (Glucotrol) 5 mg PO DAILY-[facility] Last Admin: 08/06/18 08:34 Dose: 5 mg Glucagon (Glucagon) 1 mg IM PRN PRN PRN Reason: Hypoglycemia Hydralazine HCl (Apresoline) 10 mg SLOW IVP Q4H PRN PRN Reason: SBP > 180 and HR < 70 Dextrose/Water (D5w) 1,000 mls @ 0 mls/hr IV .Q0M PRN PRN Reason: Hypoglycemia Insulin Human Lispro (Humalog) 0 units SC .MILD SLIDING SCALE PRN PRN Reason: Mild Correctional Scale Insulin Human Lispro (Humalog) 0 units SC .BEDTIME SLIDING SC PRN PRN Reason: Bedtime Correctional Scale Metformin HCl (Glucophage) 500 mg PO BID-[facility] Last Admin: 08/06/18 08:34 Dose: 500 mg Ondansetron HCl (Zofran Odt) 4 mg PO Q6H PRN PRN Reason: Nausea/Vomiting Ondansetron HCl (Zofran) 4 mg IVP Q6H PRN PRN Reason: Nausea/Vomiting Potassium Chloride (Klor-Con 10) 10 meq PO QAM-[facility] Last Admin: 08/06/18 08:34 Dose: 10 meq Sacubitril/Valsartan (Entresto 49 Mg-51 Mg Tablet) 1 tab PO BID [facility] Last Admin: 08/06/18 08:36 Dose: 1 tab Spironolactone (Aldactone) 25 mg PO DAILY [facility] Last Admin: 08/06/18 08:36 Dose: 25 mg
[2018-08-06] MEDS: Atorvastatin Calcium 10 MG TAB PO SCH (20:03)
[2018-08-07] MEDS ORDERED: Furosemide 40 MG/4 ML VIAL SLOW IVP SCH (09:00)
[2018-08-07] MEDS: Digoxin 0.125 MG TAB PO SCH (09:09)
[2018-08-07] MEDS: Famotidine 20 MG TAB PO SCH (09:09)
[2018-08-07] MEDS: glipiZIDE 5 MG TAB PO SCH (09:11)
[2018-08-07] MEDS: Spironolactone 25 MG TAB PO SCH (09:12)
[2018-08-07] MEDS: Carvedilol 25 MG TAB PO SCH (09:12)
[2018-08-07] MEDS: metFORMIN 500 MG TAB PO SCH (09:13)
[2018-08-07] MEDS: Potassium Chloride 10 MEQ TAB PO SCH (09:13)
[2018-08-07] MEDS: Sacubitril 49 MG/Valsartan 51 MG TABLET PO SCH (09:14)
[2018-08-07 11:37] VITALS: TEMP 97.6
[2018-08-07 12:21] VITALS: BP 104/81
--- NOTE | 2018-08-07 20:12 | DIS ---
DATE OF ADMISSION: 08/06/2018 DATE OF DISCHARGE: 08/07/2018 DISCHARGE DIAGNOSES: 1. Acute on chronic systolic congestive heart failure with ejection fraction of 10-15%. 2. Hypertension, stable. 3. Chronic kidney disease stage 2. 4. Medication noncompliance. 5. Diabetes mellitus type 2, stable. CONSULTATIONS: None. PERTINENT LAB AND X-RAY FINDINGS: Creatinine ranged between 1.38-1.42. Potassium ranged between 3.3 -3.7, magnesium 1.7, troponin I ranged between 0.268-0.281. BNP 1001, previously noted 951 on 2016. Digoxin level 0.60. Portable chest x-ray dated 08/04/2018 showed mild edema with small bilate ral pleural effusions. A 2D transthoracic echocardiogram dated 08/06/2018 showed ejection fraction o f 10-15%. Moderate left atrial enlargement. Severe mitral valve regurgitation. HOSPITAL COURSE: The patient was admitted to the telemetry unit after initially presenting with incr easing shortness of breath in the context of known systolic congestive heart failure with ejection fr action in the 10-15% range. The patient was placed on IV Lasix therapy with repeat echocardiogram co nfirming an ejection fraction of 10-15%. The patient was slow to clinically improve with IV Lasix th erapy; however, did diurese appropriately with stable vital signs. Patient was given education regar ding fluid restriction and compliance with medication regimen after discharge. Telemetry monitoring showed AV pacing with heart rates in the 70s-80s. No acute arrhythmia or dysrhythmia noted. I have examined the patient at the time of discharge and discussed followup instructions. The patient gwenpj anilaes understanding and agreement and ready for discharge on 08/07/2018. DISCHARGE MEDICATIONS: 1. Enteric-coated aspirin 81 mg 1 tab p.o. daily. 2. Bumex 4 mg p.o. b.i.d. 3. Coreg 25 mg p.o. b.i.d. 4. Digoxin 125 mcg p.o. daily. 5. Uloric 40 mg p.o. daily. 6. Fluoxetine 20 mg p.o. daily. 7. Glipizide 10 mg p.o. b.i.d. 8. Metformin 500 mg p.o. b.i.d. 9. Klor-Con 10 mEq p.o. daily. 10. Simvastatin 20 mg p.o. at bedtime. 11. Aldactone 25 mg p.o. daily. 12. Entresto 49/51 mg 1 tab p.o. b.i.d. FOLLOWUP: Patient will follow up with his primary care provider, Paola Hernandez within 7 days of dis charge. The patient will follow up with Dr. Felix Gotti with [facility] an d to call his office for appointment time and date. The patient will follow up with the [facility]. CONDITION ON DISCHARGE: Fair. ACTIVITY: Ad balaji. DIET: Heart healthy. CODE STATUS: FULL. DISPOSITION: Home, 08/07/2018. Total time preparing and coordinating discharge 35 minutes.
--- NOTE | 2018-08-12 22:11 | EKG ---
Test Reason : ER INDICATION Blood Pressure : / mmHG Vent. Rate : 081 BPM Atrial Rate : 081 BPM P-R Int : 210 ms QRS Dur : 142 ms QT Int : 410 ms P-R-T Axes : 054 -06 081 degrees QTc Int : 476 ms Atrial-sensed ventricular-paced rhythm with prolonged AV conduction Abnormal ECG No changes from 14-DEC-2015 Confirmed by DARRYL RODNEY MD ([id number]), assistant film editor HOPE COY ([id number]) on 08/12/2018 10:10:58 PM Referred By: Confirmed By:DARRYL RODNEY MD
== END 2018-08-07 12:40 | disposition home or self-care (01) | DRG 291 ==
LOC: ERS 18:13 → 2SE 21:11 → INTOOBSV 21:11 → OBSVTOIN 08-06 10:21
PROVIDERS: ADMIT Family Medicine; ATTEND Family Medicine
DX: I13.0 Hypertensive heart and chronic kidney disease with heart failure and stage 1 through stage 4 chronic kidney disease, or unspecified chronic kidney disease (principal); I50.23 Acute on chronic systolic (congestive) heart failure; E78.5 Hyperlipidemia, unspecified; I42.8 Other cardiomyopathies; N18.2 Chronic kidney disease, stage 2 (mild); E11.22 Type 2 diabetes mellitus with diabetic chronic kidney disease; M10.9 Gout, unspecified; Z95.810 Presence of automatic (implantable) cardiac defibrillator; Z91.14 Patient's other noncompliance with medication regimen; Z79.899 Other long term (current) drug therapy; Z79.84 Long term (current) use of oral hypoglycemic drugs; F17.210 Nicotine dependence, cigarettes, uncomplicated
CPT/HCPCS: 36415; 36416; 71046; 80048; 80053; 80162; 82553; 83735; 83880; 84484; 84550; 85007; 85025; 85027; 93005; 93306; 93798; 96374; J1940

== ENCOUNTER 2018-09-18 19:26 | Emergency (ER) | payer MEDICARE, MEDICAID ==
--- NOTE | 2018-09-18 21:19 | RAD ---
CHEST PA AND LATERAL: HISTORY: A 43-year-old male with a history of cough, sinus congestion, and left-sided headaches. COMPARISON: 08/04/2018 FINDINGS: Large stable cardiomegaly with left ICD. Bilateral vascular congestion with trace pleural fluid and mild edema. IMPRESSION: 1. Overall stable cardiomegaly with vascular congestion and mild interstitial edema and pleural effu sions. 2. The appearance stable to possibly slightly. Appearance is stable to possibly slightly improved from prior 08/04/2018 study. POS: KATHERINE
== END 2018-09-18 22:42 | disposition home or self-care (01) ==
LOC: ERS 19:26
DX: J32.9 Chronic sinusitis, unspecified (principal); J40 Bronchitis, not specified as acute or chronic; E11.9 Type 2 diabetes mellitus without complications; F17.210 Nicotine dependence, cigarettes, uncomplicated; M10.9 Gout, unspecified; I11.0 Hypertensive heart disease with heart failure; I50.9 Heart failure, unspecified
CPT/HCPCS: 71046; 94640; J7620

== ENCOUNTER 2018-10-26 21:31 | Inpatient (IN) | payer MEDICARE, MEDICAID ==
--- NOTE | 2018-10-26 23:45 | RAD ---
RADIOGRAPH CHEST 1 VIEW: Date: 10/26/18 Time: 11:35 p.m. HISTORY: 43-year-old male with congestive heart failure and dyspnea. COMPARISON: 09/18/18. FINDINGS: Severe cardiomegaly. Left subclavian AICD. Pulmonary venous engorgement. No pulmonary alveolar edema or consolidation. No pneumothorax. Allowing for slight differences in exposure technique, there is pr obably no significant interval change. IMPRESSION: 1. Severe cardiomegaly and pulmonary venous congestion. 2. Automatic implantable cardioverter/defibrillator. SAMMI [] POS: KATHERINE
[2018-10-26 23:59] LABS: #Basophils 0.1 thou/uL (0.0-0.2); #Eosinphils 0.4 thou/uL (0.0-0.7); #Lymphocytes 1.2 thou/uL (1.20-3.40); #Monocytes 0.5 thou/uL (0.11-0.59); #Neutrophils 4.4 thou/uL (1.40-6.50); %Basophils 0.9 % (0.0-1.0); %Eosinophils 6.5 % (0.0-10.0); %Lymphocytes 18.5 % (21.0-51.0); %Monocytes 7.4 % (0.0-10.0); %Neutrophils 66.8 % (42.0-75.0); Hemoglobin 14.7 g/dL (14.0-18.0); Mean Corpuscular HGB CONC 34.1 g/dL (32.0-36.0); Mean Corpuscular Volume 90.8 fL (78.0-98.0); Mean Platelet Volume 9.7 fL (7.4-10.4); Platelet Count 211 thou/uL (130-400); RBC Distribution Width 13.7 % (11.5-14.5); Red Blood Cell (RBC) Count 4.76 mill/uL (4.70-6.10); White Blood Cell (WBC) Count 6.6 thou/uL (4.8-10.8)
[2018-10-27] MEDS ORDERED: Ketorolac Tromethamine 30 MG/ML VIAL ONE (00:08)
[2018-10-27] MEDS ORDERED: predniSONE 20 MG TAB ONE (00:08)
[2018-10-27 00:18] LABS: ALT (SGPT) 12 U/L (8-55); AST (SGOT) 16 U/L (5-34); Albumin 4.5 g/dL (3.5-5.0); Alkaline Phosphatase 62 U/L (40-150); Anion Gap 16 mmol/L (10-20); BUN (Urea Nitrogen) 17 mg/dL (8.9-20.6); CK (CPK) 154 U/L (30-200); Calc. Creatinine Clearance 0 mL/min (70-130); Calcium 10.6 mg/dL (7.8-10.44); Carbon Dioxide 28 mmol/L (22-29); Chloride 100 mmol/L (98-107); Estimated GFR-MDRD 66; Globulin 3.6 g/dL (2.4-3.5); Glucose 84 mg/dL (70-105); Potassium 3.6 mmol/L (3.5-5.1); Protein, Total 8.1 g/dL (6.0-8.3); Sodium 140 mmol/L (136-145)
[2018-10-27 00:42] LABS: CKMB 1.2 ng/mL (0-6.6)
[2018-10-27] MEDS ORDERED: Furosemide 40 MG/4 ML VIAL ONE (00:56)
[2018-10-27] MEDS ORDERED: Loperamide HCl 2 MG CAP PO PRN (02:14)
[2018-10-27] MEDS ORDERED: Acetaminophen 325 MG TAB PO PRN (02:14)
[2018-10-27] MEDS ORDERED: Ondansetron PF 4 MG/2 ML Vial IVP PRN (02:14)
[2018-10-27 03:03] LABS: #Eosinphils 0.4 thou/uL (0.0-0.7); #Lymphocytes 0.8 thou/uL (1.20-3.40); #Monocytes 0.5 thou/uL (0.11-0.59); #Neutrophils 5.2 thou/uL (1.40-6.50); %Basophils 0.6 % (0.0-1.0); %Eosinophils 5.3 % (0.0-10.0); %Lymphocytes 10.9 % (21.0-51.0); %Neutrophils 76.2 % (42.0-75.0); Hemoglobin 13.9 g/dL (14.0-18.0); Mean Corpuscular HGB CONC 34.1 g/dL (32.0-36.0); Mean Corpuscular Volume 87.8 fL (78.0-98.0); Mean Platelet Volume 9.3 fL (7.4-10.4); Platelet Count 196 thou/uL (130-400); RBC Distribution Width 13.6 % (11.5-14.5); Red Blood Cell (RBC) Count 4.62 mill/uL (4.70-6.10); White Blood Cell (WBC) Count 6.9 thou/uL (4.8-10.8)
[2018-10-27 03:27] LABS: Anion Gap 14 mmol/L (10-20); BUN (Urea Nitrogen) 18 mg/dL (8.9-20.6); Calc. Creatinine Clearance 0 mL/min (70-130); Calcium 10.6 mg/dL (7.8-10.44); Carbon Dioxide 30 mmol/L (22-29); Chloride 100 mmol/L (98-107); Estimated GFR-MDRD 60; Glucose 70 mg/dL (70-105); Potassium 3.5 mmol/L (3.5-5.1); Sodium 140 mmol/L (136-145)
[2018-10-27 03:34] LABS: Troponin I 0.593 ng/mL (< 0.028)
[2018-10-27] MEDS ORDERED: Dextrose 5% in Water 1,000 ML IV PRN (05:04)
[2018-10-27] MEDS ORDERED: Dextrose 50% Abboject 50 ML SYRINGE SLOW IVP PRN (05:04)
[2018-10-27 05:59] VITALS: BMI 32.4
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
[2018-10-27 06:47] LABS: Critical Call Chem Troponin I RESULT DECREASING; Troponin I 0.518 ng/mL (< 0.028)
[2018-10-27] MEDS ORDERED: predniSONE 5 MG TAB PO SCH (08:00)
[2018-10-27] MEDS: FLUoxetine HCl 20 MG CAP PO SCH (09:37)
[2018-10-27] MEDS: Sacubitril 49 MG/Valsartan 51 MG TABLET PO SCH ×2 (09:37→21:27)
[2018-10-27] MEDS: Febuxostat 40 MG TAB PO SCH (09:37)
[2018-10-27] MEDS: Carvedilol 25 MG TAB PO SCH ×2 (09:37→21:27)
[2018-10-27] MEDS: Bumetanide 1 MG TAB PO SCH ×2 (09:37→16:35)
[2018-10-27] MEDS: Aspirin 81 mg Enteric Coated Tablet PO SCH (09:38)
[2018-10-27] MEDS: Potassium Chloride 10 MEQ TAB PO SCH (09:38)
[2018-10-27] MEDS: Spironolactone 25 MG TAB PO SCH (09:38)
[2018-10-27] MEDS: Digoxin 0.125 MG TAB PO SCH (11:03)
[2018-10-27] MEDS: Enoxaparin Sodium 40 MG/0.4 ML SYRINGE SC SCH (11:04)
[2018-10-27] MEDS: Furosemide 40 MG/4 ML VIAL SLOW IVP SCH (11:05)
[2018-10-27] MEDS: HumaLOG 300 UNITS/3 ML VIAL SC PRN (16:34)
--- NOTE | 2018-10-27 19:11 | PDOC.PN ---
- Subjective Encounter Start Date: 10/27/18 Encounter Start Time: 18:50 Subjective: f/u for CHF with EF in 15% range. Feels less SOB and vitals stable per -: nursing. States compliance with home meds and follows up at CHF clinic. - Objective Resuscitation Status - Order Detail: 10/27/18 02:14 Resuscitation Status Routine Resuscitation Status: FULL: Full Resuscitation MAR Reviewed: Yes Vital Signs & Weight: Vital Signs (12 hours) Temp Pulse Resp BP Pulse Ox 10/27/18 16:20 97.5 F L 66 18 110/76 97 10/27/18 15:42 97.8 F 68 16 108/72 95 10/27/18 12:18 97.7 F 66 27 H 104/73 96 10/27/18 11:03 70 10/27/18 09:15 96 Weight Weight 226 lb I&O: 10/26/18 10/27/18 10/28/18 06:59 06:59 06:59 Intake Total 1080 Output Total 1060 Balance 20 Result Diagrams: 10/27/18 02:48 10/27/18 02:48 Additional Labs: Accuchecks 10/27/18 06:43 POC Glucose 139 H Laboratory Tests 02/08/17 02/09/17 08/04/18 04:02 05:58 19:04 B-Natriuretic Peptide 1596.6 H 950.5 H 1000.8 H Troponin I 10/26/18 10/26/18 10/27/18 23:46 23:46 02:48 B-Natriuretic Peptide 1314.2 H Troponin I 0.528 H* 0.593 H* 10/27/18 06:07 B-Natriuretic Peptide Troponin I 0.518 H* Radiology Reviewed by me: Yes (2D echo -EF 10-15%, LAE, severe MR) EKG Reviewed by me: Yes (Tele - SR) Phys Exam - Physical Examination Constitutional: NAD HEENT: PERRLA, sclera anicteric, oral pharynx no lesions Neck: no nodes, no JVD, supple, full ROM Respiratory: no wheezing, no rales, no rhonchi, clear to auscultation bilateral S1, S2 II/ HALEY LUSB Cardiovascular: RRR, no rub, gallop Gastrointestinal: soft, non-tender, no distention, positive bowel sounds Musculoskeletal: pulses present, edema present Neurological: normal sensation, moves all 4 limbs Psychiatric: A&O x 3 Skin: normal turgor, cap refill <2 seconds Dx/Plan (1) Acute on chronic systolic (congestive) heart failure Code(s): I50.23 - ACUTE ON CHRONIC SYSTOLIC (CONGESTIVE) HEART FAILURE Status : Acute Comment: EF 10-15% with AICD, continue Lasix 40mg IV BID, monitor daily weight, I/O's (2) Acute respiratory failure with hypoxia Code(s): J96.01 - ACUTE RESPIRATORY FAILURE WITH HYPOXIA Status: Acute Comment: Transient likely due to volume overload, currently on RA (3) Acute gout of ankle Code(s): M10.9 - GOUT, UNSPECIFIED Status: Suspected Qualifiers: Laterality: left Comment: Supportive mgmt, increase Prednisone 20mg daily (4) Demand ischemia Code(s): I24.8 - OTHER FORMS OF ACUTE ISCHEMIC HEART DISEASE Status: Acute Comment: Secondary to CM, medical mgmt (5) CKD (chronic kidney disease) stage 2, GFR 60-89 ml/min Code(s): N18.2 - CHRONIC KIDNEY DISEASE, STAGE 2 (MILD) Status: Chronic Comment: Avoid nephrotoxic meds and limit contrast exposure (6) Tobacco abuse Code(s): Z72.0 - TOBACCO USE Status: Chronic Comment: Tobacco cessation resources - Plan social work therapist, out of bed/ambulate Stable currently -: Continue Bumex and Lasix -: Monitor daily weight/ I/O's -: Tobacco cessation -: Continue Entresto and monitor BP closely * AM lab: BMP
[2018-10-27] MEDS ORDERED: predniSONE 20 MG TAB PO SCH (19:16)
[2018-10-27] MEDS ORDERED: Simvastatin 20 MG TAB PO SCH (21:00)
[2018-10-28 00:23] LABS: Critical Call Chem Troponin I RESULT DECREASING; Troponin I 0.402 ng/mL (< 0.028)
[2018-10-28 03:43] LABS: Troponin I 0.425 ng/mL (< 0.028)
[2018-10-28 03:47] LABS: Anion Gap 14 mmol/L (10-20); BUN (Urea Nitrogen) 26 mg/dL (8.9-20.6); Calc. Creatinine Clearance 115 mL/min (70-130); Calcium 10.2 mg/dL (7.8-10.44); Carbon Dioxide 27 mmol/L (22-29); Chloride 102 mmol/L (98-107); Estimated GFR-MDRD 80; Glucose 178 mg/dL (70-105); Potassium 3.7 mmol/L (3.5-5.1); Sodium 139 mmol/L (136-145)
[2018-10-28 08:06] LABS: Troponin I 0.391 ng/mL (< 0.028)
[2018-10-28 08:34] VITALS: TEMP 97.9
[2018-10-28] MEDS: Bumetanide 1 MG TAB PO SCH (08:35)
[2018-10-28] MEDS: Spironolactone 25 MG TAB PO SCH (08:36)
[2018-10-28] MEDS: Carvedilol 25 MG TAB PO SCH (08:36)
[2018-10-28] MEDS: Aspirin 81 mg Enteric Coated Tablet PO SCH (08:36)
[2018-10-28] MEDS: FLUoxetine HCl 20 MG CAP PO SCH (08:36)
[2018-10-28] MEDS: Potassium Chloride 10 MEQ TAB PO SCH (08:36)
[2018-10-28] MEDS: Digoxin 0.125 MG TAB PO SCH (08:36)
[2018-10-28] MEDS ORDERED: Sodium Chloride 0.9% 10 ML ONE (08:42)
[2018-10-28] MEDS: Febuxostat 40 MG TAB PO SCH (11:26)
[2018-10-28] MEDS: Sacubitril 49 MG/Valsartan 51 MG TABLET PO SCH (11:26)
[2018-10-28] MEDS: Enoxaparin Sodium 40 MG/0.4 ML SYRINGE SC SCH (11:27)
[2018-10-28] MEDS: Furosemide 40 MG/4 ML VIAL SLOW IVP SCH (11:28)
[2018-10-28] MEDS: HumaLOG 300 UNITS/3 ML VIAL SC PRN (11:29)
--- NOTE | 2018-10-28 13:20 | DIS ---
DATE OF ADMISSION: 10/27/2018 DATE OF DISCHARGE: 10/28/2018 DISCHARGE DIAGNOSES: 1. Acute on chronic systolic congestive heart failure with ejection fraction of 10% to 15%, stable. 2. Acute hypoxic respiratory failure, resolved. 3. Acute gouty arthropathy of the left ankle. 4. Demand ischemia secondarily to #1. 5. Chronic kidney disease, stage 2. 6. Tobacco abuse, ongoing. CONSULTATIONS: None. PERTINENT LAB AND X-RAY FINDINGS: Creatinine ranged between 1.20 to 1.54. Estimated GFR ranged between 60 to 80. Troponin I ranged between 0.391 to 0.593. BNP 1314, previously noted 1001 on 08/04/2018. Portable chest x-ray dated 10/26/2018, showed cardiomegaly with pulmonary vascular prominence. HOSPITAL COURSE: The patient was admitted to the telemetry unit after initially presenting with increased shortness of breath and left ankle pain. The patient was initially managed for acute on chronic systolic congestive heart failure with known prior history of severe ischemic cardiomyopathy with ejection fraction of 10% to 15%. The patient was placed on IV Lasix and Bumex, and monitored clinically. The patient rapidly clinically improved with respiratory status with diuretic therapy and transiently required oxygen at the time of evaluation. The patient was also managed for a left ankle gouty arthropathy with initiation of prednisone 20 mg daily. The patient was ambulatory without assistance or difficulty and tolerating regular oral intake. The patient was noted with chronically elevated troponin I in the context of demand ischemia due to severe ischemic cardiomyopathy. The patient was counseled regarding the need for tobacco cessation and compliance with medication regimen. I have examined the patient at the time of discharge and discussed followup instructions. The patient verbalized understanding and agreement. Ready for discharge on 10/28/2018. DISCHARGE MEDICATIONS: 1. Enteric-coated aspirin 81 mg p.o. daily. 2. Bumex 4 mg p.o. b.i.d. 3. Digoxin 125 mcg p.o. daily. 4. Uloric 40 mg p.o. daily. 5. Fluoxetine 20 mg p.o. daily. 6. Glipizide 10 mg p.o. b.i.d. 7. Metformin 500 mg p.o. b.i.d. 8. Klor-Con 10 mEq p.o. daily. 9. Simvastatin 20 mg p.o. at bedtime. 10. Spironolactone 25 mg p.o. daily. 11. Coreg 12.5 mg p.o. b.i.d. 12. Prednisone 20 mg p.o. daily x10 days. 13. Entresto 49/51 mg 1 tablet p.o. b.i.d. FOLLOWUP: The patient may follow up with Paola Hernandez for primary care. The patient may follow up with Dr. Feilx Gotti, [facility]. The patient to follow up with the [facility] on 11/03/2018 at 8:20 a.m. CONDITION ON DISCHARGE: Fair. ACTIVITY: Ad-balaji. DIET: Heart healthy and ADA. CODE STATUS: Full. DISPOSITION: Home on 10/28/2018. TIME SPENT: Total time preparing and coordinating discharge, 36 minutes. Job ID: [id number]
[2018-10-28 13:21] VITALS: BP 103/59
--- NOTE | 2018-10-28 13:35 | EKG ---
Test Reason : SOB Blood Pressure : / mmHG Vent. Rate : 087 BPM Atrial Rate : 087 BPM P-R Int : 188 ms QRS Dur : 162 ms QT Int : 412 ms P-R-T Axes : 057 -25 091 degrees QTc Int : 495 ms Electronic ventricular pacemaker Left ventricular hypertrophy Leftward axis Wide QRS Confirmed by BRONWYN MALDONADO, LILIAN Lainez ([id number]), editor in chief newspaper FRANCIS REYES ([id number]) on 10/28/2018 1:34:50 PM Referred By: Confirmed By:LILIAN BARNHART MD
== END 2018-10-28 14:11 | disposition home or self-care (01) | DRG 291 ==
LOC: ERS 21:31 → ERHOLD 10-27 00:35 → 2NO 10-27 16:51
PROVIDERS: ADMIT Hospitalist; ATTEND Hospitalist
DX: I13.0 Hypertensive heart and chronic kidney disease with heart failure and stage 1 through stage 4 chronic kidney disease, or unspecified chronic kidney disease (principal); I50.23 Acute on chronic systolic (congestive) heart failure; J96.01 Acute respiratory failure with hypoxia; I24.8 Other forms of acute ischemic heart disease; N18.2 Chronic kidney disease, stage 2 (mild); M10.072 Idiopathic gout, left ankle and foot; I25.5 Ischemic cardiomyopathy; E11.22 Type 2 diabetes mellitus with diabetic chronic kidney disease; F17.210 Nicotine dependence, cigarettes, uncomplicated; E83.52 Hypercalcemia; E78.5 Hyperlipidemia, unspecified; Z98.890 Other specified postprocedural states; Z95.810 Presence of automatic (implantable) cardiac defibrillator; Z71.6 Tobacco abuse counseling
CPT/HCPCS: 36415; 36416; 71045; 80048; 80053; 82550; 82553; 83605; 83880; 84484; 85025; 93005; 93798; 94640; 96372; 96374; J1650; J1885; J1940; J7506

== ENCOUNTER 2019-02-19 22:51 | Inpatient (IN) | payer MEDICAID, MEDICARE ==
[2019-02-20 00:01] LABS: #Basophils 0.1 thou/uL (0.0-0.2); #Eosinphils 0.4 thou/uL (0.0-0.7); #Lymphocytes 1.3 thou/uL (1.20-3.40); #Monocytes 0.5 thou/uL (0.11-0.59); #Neutrophils 4.6 thou/uL (1.40-6.50); %Eosinophils 6.4 % (0.0-10.0); %Lymphocytes 19.1 % (21.0-51.0); %Monocytes 7.3 % (0.0-10.0); %Neutrophils 66.3 % (42.0-75.0); Hemoglobin 14.8 g/dL (14.0-18.0); Mean Corpuscular HGB CONC 35.3 g/dL (32.0-36.0); Mean Corpuscular Hemoglobin 31.6 pg (27.0-31.0); Mean Corpuscular Volume 89.5 fL (78.0-98.0); Mean Platelet Volume 9.1 fL (7.4-10.4); Platelet Count 213 thou/uL (130-400); White Blood Cell (WBC) Count 6.9 thou/uL (4.8-10.8)
[2019-02-20] MEDS ORDERED: predniSONE 20 MG TAB ONE (00:10)
[2019-02-20 00:27] LABS: ALT (SGPT) 8 U/L (8-55); AST (SGOT) 14 U/L (5-34); Albumin 4.5 g/dL (3.5-5.0); Alkaline Phosphatase 62 U/L (40-150); Anion Gap 12 mmol/L (10-20); BUN (Urea Nitrogen) 19 mg/dL (8.9-20.6); Calc. Creatinine Clearance 0 mL/min (70-130); Carbon Dioxide 31 mmol/L (22-29); Chloride 102 mmol/L (98-107); Estimated GFR-MDRD 64; Globulin 3.1 g/dL (2.4-3.5); Glucose 141 mg/dL (70-105); Potassium 3.7 mmol/L (3.5-5.1); Protein, Total 7.6 g/dL (6.0-8.3); Sodium 141 mmol/L (136-145)
[2019-02-20 00:45] LABS: CKMB 2.7 ng/mL (0-6.6)
[2019-02-20] MEDS ORDERED: Aspirin 325 MG TAB ONE (01:13)
[2019-02-20] MEDS ORDERED: Aspirin 81 mg Enteric Coated Tablet ONE (01:15)
[2019-02-20] MEDS ORDERED: Ondansetron ODT 4 MG TAB PO PRN (03:57)
[2019-02-20] MEDS ORDERED: Ondansetron PF 4 MG/2 ML Vial IVP PRN (03:57)
[2019-02-20] MEDS ORDERED: Acetaminophen 325 MG TAB PO PRN (03:57)
[2019-02-20 03:58] LABS: Critical Call Chem Troponin I RESULT DECREASING; Troponin I 0.379 ng/mL (< 0.028)
[2019-02-20] MEDS ORDERED: Dextrose 50% Abboject 50 ML SYRINGE SLOW IVP PRN (04:49)
[2019-02-20] MEDS ORDERED: Dextrose 5% in Water 1,000 ML IV PRN (04:49)
--- NOTE | 2019-02-20 06:00 | HP ---
PRIMARY CARE DOCTOR: SALOMÓN Hernandez. CODE STATUS: Full code. TIME OF EVALUATION: 03:40 a.m. CHIEF COMPLAINT: Shortness of breath. HISTORY OF PRESENT ILLNESS: This is a 44-year-old male patient with past medical history of congestive heart failure, the patient has AICD, also history of COPD, came to the hospital after having severe gradually worsening shortness of breath with audible wheezing. The symptoms have been present for the past 3 days with no clear triggers. No alleviating factors. No fever. The patient has been coughing up some greenish sputum. REVIEW OF SYSTEMS: CONSTITUTIONAL: No fever or chills. The patient reported generalized weakness. RESPIRATORY: The patient has cough, greenish sputum production, shortness of breath, wheezing. CARDIOVASCULAR: No chest pain or palpitation. GASTROINTESTINAL: No nausea, no vomiting, diarrhea or abdominal pain. CENTRAL NERVOUS SYSTEM: No dizziness, headache, or feeling lightheaded. GENITOURINARY: No burning on urination. EXTREMITIES: Bilateral leg swelling. All other systems were reviewed and negative except for the findings mentioned above. PAST MEDICAL HISTORY: Positive for congestive heart failure, diabetes type 2, hyperlipidemia, hypertension. KNOWN ALLERGIES: No known drug allergies. REPORTED MEDICATIONS: 1. Metformin. 2. Aspirin. 3. Simvastatin. 4. Carvedilol. 5. Bumetanide. 6. Spironolactone. 7. Digoxin. 8. Glipizide. 9. Fluoxetine. 10. Uloric. 11. Klor-Con. 12. Entresto. PHYSICAL EXAMINATION: VITAL SIGNS: On presentation, blood pressure 116/77, with heart rate 83, respiratory rate was 20, temperature 98.2, oxygen saturation was 98% on room air. GENERAL APPEARANCE: The patient is alert, oriented, not in acute distress. HEENT: Eyes, normal conjunctivae. Moist oral mucosa. Anicteric. No JVD. RESPIRATORY: Bilateral air entry decreased. The patient has bilateral wheezing. There are severe bilateral rales. Symmetric expansion. CARDIOVASCULAR: Normal rate. Regular rhythm. No murmurs. No gallop. Bilateral leg edema. ABDOMEN: Soft. Normal bowel sounds. MUSCULOSKELETAL: Baseline range of motion and strength. No tenderness. SKIN: Warm, intact. No pallor. No rash. No redness. Peripheral pulses are present. Capillary refill seems to be intact. NEUROLOGIC: No evidence of any new focal weakness. Baseline speech. Cranial nerves seems to be intact. PSYCHIATRY: The patient is in good mood. No anxiety. Optimal judgment. DIAGNOSTIC DATA: EKG was reviewed. The patient has a paced rhythm at the rate of 82, FL 196, QT corrected 467. Chest x-ray was reviewed, not reported yet by Radiology. The patient had cardiomegaly, bilateral congestion, pacemaker and AICD in place. LABORATORY DATA: Reviewed. The patient has white count of 6.9, hemoglobin 14.8, MCV 89.5, platelet count 213. Sodium 141, potassium 3.7, chloride 102, carbon dioxide 31, anion gap 12, BUN 19, creatinine 1.46. The previous creatinine was 1.2, GFR 64, glucose 141, calcium 11, total bilirubin 1.0. LFTs were negative. Troponin initial was 0.397 and second one 0.379. The brain-natriuretic peptide was 994. Albumin 4.5. ASSESSMENT AND PLAN: The patient will be placed in the hospital with the following medical problems: 1. Acute congestive heart failure exacerbation. The patient has pulmonary congestion, bilateral leg edema, rales bilaterally. The patient will be placed on diureses, reconcile home medications. 2. Acute hypoxic respiratory failure. During my examination, oxygen saturation today is 88%. The patient . This is likely secondary to underlying possible chronic obstructive pulmonary disease and congestive heart failure exacerbation. We will treat underlying condition. 3. Possible chronic obstructive pulmonary disease exacerbation. The patient has some greenish sputum. The patient has bilateral audible wheezing. We will start the patient on antibiotics and DuoNebs. Might need to add steroids if not improving with this treatment. 4. Mildly elevated creatinine. The patient is receiving diuresis, this could be cardiorenal. No criteria for acute kidney injury yet. However, these need to be monitored. If worsening, might need help from Nephro to get good diuresis. 5. Uncontrolled diabetes. The patient has blood sugar of 141, the patient is started on sliding scale for optimal control of the diabetes. 6. Ila-UT-[id number] myocardial infarction type 2. The patient has troponin 0.397 and 0.379. These troponins are always in the same range. We will trend troponins, we will place the patient on monitor, on tele, and we will treat accordingly. Most likely due to underlying conditions. 7. Hyperlipidemia. Low-cholesterol diet is advised. Reconcile home medications. 8. Controlled hypertension, reconcile home medications. Adjust as needed. 9. Deep venous thrombosis prophylaxis. Job ID: [id number]
[2019-02-20 07:26] LABS: Troponin I 0.366 ng/mL (< 0.028)
--- NOTE | 2019-02-20 07:40 | RAD ---
Radiograph chest one view: 02/20/2019 at 12:03 AM HISTORY: 44-year-old male with dyspnea COMPARISON: 2018 FINDINGS: Again noted is the cardiomegaly. There is a new finding of diffuse mild interstitial densities probab ly representing pulmonary interstitial edema. There is pulmonary venous engorgement. Left subclavian AICD. No pneumothorax. IMPRESSION: Congestive heart failure
[2019-02-20] MEDS ORDERED: Furosemide 40 MG/4 ML VIAL ONE (08:13)
[2019-02-20] MEDS: Furosemide 40 MG/4 ML VIAL SLOW IVP SCH ×2 (08:23→13:44)
[2019-02-20] MEDS: Heparin 5,000 UNITS/ML VIAL SC SCH ×3 (09:37→20:17)
[2019-02-20] MEDS: Carvedilol 25 MG TAB PO SCH ×2 (11:42→20:16)
[2019-02-20] MEDS: Spironolactone 25 MG TAB PO SCH (11:44)
[2019-02-20] MEDS: glipiZIDE 10 MG TAB PO SCH ×2 (11:45→20:16)
[2019-02-20] MEDS ORDERED: Digoxin 0.125 MG TAB ONE (11:46)
[2019-02-20] MEDS: Digoxin 0.125 MG TAB PO SCH (11:47)
[2019-02-20 12:38] VITALS: BMI 32.0
[2019-02-20] MEDS ORDERED: Bacteriostatic Water 30 ML VIAL FS PRN (17:31)
--- NOTE | 2019-02-20 17:33 | PDOC.PN ---
- Subjective Encounter Start Date: 02/20/19 Encounter Start Time: 13:00 Subjective: pt up in bed no complains - Objective Resuscitation Status - Order Detail: 02/20/19 03:57 Resuscitation Status Routine Resuscitation Status: FULL: Full Resuscitation Vital Signs & Weight: Vital Signs (12 hours) Temp Pulse Resp BP Pulse Ox 02/20/19 15:25 97.4 F L 75 24 H 113/69 02/20/19 14:37 73 20 93 L 02/20/19 12:04 97.5 F L 78 24 H 119/81 94 L 02/20/19 11:47 78 02/20/19 10:32 78 20 98 02/20/19 05:57 69 20 98 Weight Weight 229 lb 9.6 oz Result Diagrams: 02/19/19 23:52 02/19/19 23:51 Additional Labs: Accuchecks 02/20/19 02/20/19 16:57 11:52 POC Glucose 153 H 183 H Phys Exam - Physical Examination Neck: no nodes, no JVD, supple, full ROM Respiratory: wheezing present Cardiovascular: RRR, no significant murmur, no rub, gallop, irregular Gastrointestinal: soft, non-tender, no distention, positive bowel sounds Dx/Plan (1) SOB (shortness of breath) Code(s): R06.02 - SHORTNESS OF BREATH Status: Acute (2) NSTEMI (non-ST elevated myocardial infarction) Code(s): I21.4 - NON-ST ELEVATION (NSTEMI) MYOCARDIAL INFARCTION Status: Acute (3) CKD (chronic kidney disease) stage 2, GFR 60-89 ml/min Code(s): N18.2 - CHRONIC KIDNEY DISEASE, STAGE 2 (MILD) Status: Chronic Comment: Avoid nephrotoxic meds and limit contrast exposure (4) Gout Code(s): M10.9 - GOUT, UNSPECIFIED Status: Chronic - Plan will add steroids to pt's current tx -: echo ordered. pt advised to not smoke -: elevated trop most likely from demand ischemia. -: pt has no chest pain, will also continue lasix * . Review of Systems - Review of Systems Cardiovascular: negative: chest pain, palpitations, orthopnea, paroxysmal nocturnal dyspnea, edema, light headedness, other Gastrointestinal: negative: Nausea, Vomiting, Abdominal Pain, Diarrhea, Constipation, Melena, Hematochezia, Other Genitourinary: negative: Dysuria, Frequency, Incontinence, Hematuria, Retention , Other - Medications/Allergies Allergies/Adverse Reactions: Allergies Allergy/AdvReac Type Severity Reaction Status Date / Time No Known Allergies Allergy Verified 10/27/18 06:00 Medications: Current Medications Acetaminophen (Tylenol) 650 mg PO Q4H PRN PRN Reason: Headache/Fever/Mild Pain (1-3) Albuterol/Ipratropium (Duoneb) 3 ml NEB Q2H PRN PRN Reason: SOB &/or Wheezing Albuterol/Ipratropium (Duoneb) 3 ml NEB [id number] [facility] Last Admin: 02/20/19 14:37 Dose: 3 ml Aspirin (Ecotrin) 81 mg PO DAILY [facility] Atorvastatin Calcium (Lipitor) 10 mg PO HS [facility] Carvedilol (Coreg) 12.5 mg PO BID [facility] Last Admin: 02/20/19 11:42 Dose: 12.5 mg Dextrose/Water (Dextrose 50%) 25 gm SLOW IVP PRN PRN PRN Reason: Hypoglycemia Digoxin (Lanoxin) 0.125 mg PO DAILY [facility] Last Admin: 02/20/19 11:47 Dose: 0.125 mg Fluoxetine HCl (Prozac) 20 mg PO DAILY [facility] Furosemide (Lasix) 40 mg SLOW IVP 0600,1400 [facility] Last Admin: 02/20/19 13:44 Dose: 40 mg Glipizide (Glucotrol) 10 mg PO BID [facility] Last Admin: 02/20/19 11:45 Dose: 10 mg Glucagon (Glucagon) 1 mg IM PRN PRN PRN Reason: Hypoglycemia Heparin Sodium (Porcine) (Heparin) 5,000 units SC TID [facility] Last Admin: 02/20/19 13:44 Dose: 5,000 units Levofloxacin 750 mg/ Device 150 mls @ 100 mls/hr IVPB Q24HR [facility] Last Admin: 02/20/19 08:23 Dose: 150 mls Dextrose/Water (D5w) 1,000 mls @ 0 mls/hr IV .Q0M PRN PRN Reason: Hypoglycemia Insulin Human Lispro (Humalog) 0 units SC .MILD SLIDING SCALE PRN PRN Reason: Mild Correctional Scale Methylprednisolone Sodium Succinate (Solu-Medrol) 40 mg IVP DAILY [facility] Methylprednisolone Sodium Succinate (Solu-Medrol) 40 mg IVP NOW [facility] Stop: 02/20/19 19:45 Ondansetron HCl (Zofran Odt) 4 mg PO Q6H PRN PRN Reason: Nausea/Vomiting Ondansetron HCl (Zofran) 4 mg IVP Q6H PRN PRN Reason: Nausea/Vomiting Spironolactone (Aldactone) 25 mg PO DAILY [facility] Last Admin: 02/20/19 11:44 Dose: 25 mg Sterile Water (Bacteriostatic Water) 1 ml FS PRN PRN PRN Reason: RECONSTITUTION
[2019-02-20] MEDS ORDERED: methylPREDNISolone Sod Succ 40 MG VIAL IVP SCH (17:45)
[2019-02-20] MEDS: Atorvastatin Calcium 10 MG TAB PO SCH (20:17)
[2019-02-21] MEDS: HumaLOG 300 UNITS/3 ML VIAL SC PRN ×2 (06:18→21:01)
[2019-02-21 06:20] LABS: #Lymphocytes 0.7 thou/uL (1.20-3.40); #Monocytes 0.3 thou/uL (0.11-0.59); #Neutrophils 7.8 thou/uL (1.40-6.50); %Basophils 0.1 % (0.0-1.0); %Eosinophils 0.3 % (0.0-10.0); %Lymphocytes 7.8 % (21.0-51.0); %Neutrophils 88.7 % (42.0-75.0); Hemoglobin 14.1 g/dL (14.0-18.0); Mean Corpuscular HGB CONC 33.7 g/dL (32.0-36.0); Mean Corpuscular Hemoglobin 30.5 pg (27.0-31.0); Mean Corpuscular Volume 90.5 fL (78.0-98.0); Mean Platelet Volume 9.4 fL (7.4-10.4); Platelet Count 207 thou/uL (130-400); Red Blood Cell (RBC) Count 4.62 mill/uL (4.70-6.10); White Blood Cell (WBC) Count 8.8 thou/uL (4.8-10.8)
[2019-02-21] MEDS: Furosemide 40 MG/4 ML VIAL SLOW IVP SCH ×2 (06:29→15:34)
[2019-02-21 06:53] LABS: Anion Gap 12 mmol/L (10-20); BUN (Urea Nitrogen) 20 mg/dL (8.9-20.6); Calc. Creatinine Clearance 108 mL/min (70-130); Calcium 11.4 mg/dL (7.8-10.44); Carbon Dioxide 28 mmol/L (22-29); Chloride 101 mmol/L (98-107); Estimated GFR-MDRD 74; Glucose 290 mg/dL (70-105); Magnesium 2.5 mg/dL (1.6-2.6); Potassium 4.7 mmol/L (3.5-5.1); Sodium 136 mmol/L (136-145)
[2019-02-21] MEDS ORDERED: methylPREDNISolone Sod Succ 40 MG VIAL IVP SCH (09:00)
[2019-02-21] MEDS: Digoxin 0.125 MG TAB PO SCH (10:56)
[2019-02-21] MEDS: Spironolactone 25 MG TAB PO SCH (10:56)
[2019-02-21] MEDS: Carvedilol 25 MG TAB PO SCH ×2 (10:56→20:55)
[2019-02-21] MEDS: FLUoxetine HCl 20 MG CAP PO SCH (10:57)
[2019-02-21] MEDS: Heparin 5,000 UNITS/ML VIAL SC SCH ×3 (10:57→20:55)
[2019-02-21] MEDS: Aspirin 81 mg Enteric Coated Tablet PO SCH (10:57)
[2019-02-21] MEDS: glipiZIDE 10 MG TAB PO SCH ×2 (10:57→20:55)
[2019-02-21] MEDS: Atorvastatin Calcium 10 MG TAB PO SCH (20:55)
--- NOTE | 2019-02-21 21:33 | PDOC.PN ---
- Subjective Encounter Start Date: 02/21/19 Encounter Start Time: 15:00 Subjective: pt up in bed no complains, pt had 8 beats of vtach - Objective Resuscitation Status - Order Detail: 02/20/19 03:57 Resuscitation Status Routine Resuscitation Status: FULL: Full Resuscitation Vital Signs & Weight: Vital Signs (12 hours) Temp Pulse Resp BP Pulse Ox 02/21/19 19:05 98.4 F 88 16 128/85 97 02/21/19 18:38 86 20 97 02/21/19 15:14 98.3 F 90 24 H 134/84 96 02/21/19 14:09 88 16 02/21/19 11:39 98.2 F 88 20 131/77 98 02/21/19 11:03 100 20 02/21/19 10:56 82 Weight Weight 229 lb 9.6 oz I&O: 02/20/19 02/21/19 02/22/19 06:59 06:59 06:59 Intake Total 1080 670 Output Total 1000 Balance 80 670 Result Diagrams: 02/21/19 06:05 02/21/19 06:05 Additional Labs: Accuchecks 02/21/19 02/21/19 02/21/19 21:02 16:43 11:43 POC Glucose 320 H 225 H 143 H 02/21/19 05:13 POC Glucose 299 H Phys Exam - Physical Examination Respiratory: no wheezing, no rales, no rhonchi, wheezing present, clear to auscultation bilateral Cardiovascular: RRR, no significant murmur, no rub, gallop, irregular Gastrointestinal: soft, non-tender, no distention, positive bowel sounds Dx/Plan (1) SOB (shortness of breath) Code(s): R06.02 - SHORTNESS OF BREATH Status: Acute (2) NSTEMI (non-ST elevated myocardial infarction) Code(s): I21.4 - NON-ST ELEVATION (NSTEMI) MYOCARDIAL INFARCTION Status: Acute (3) CKD (chronic kidney disease) stage 2, GFR 60-89 ml/min Code(s): N18.2 - CHRONIC KIDNEY DISEASE, STAGE 2 (MILD) Status: Chronic Comment: Avoid nephrotoxic meds and limit contrast exposure (4) Gout Code(s): M10.9 - GOUT, UNSPECIFIED Status: Chronic - Plan electrolytes stable -: will observe one more night if no events will discharge in am -: change steroids to po -: echo pending, no chest pain * . Review of Systems - Review of Systems Respiratory: negative: Cough, Dry, Shortness of Breath, Hemoptysis, SOB with Excertion, Pleuritic Pain, Sputum, Wheezing Cardiovascular: negative: chest pain, palpitations, orthopnea, paroxysmal nocturnal dyspnea, edema, light headedness, other - Medications/Allergies Allergies/Adverse Reactions: Allergies Allergy/AdvReac Type Severity Reaction Status Date / Time No Known Allergies Allergy Verified 10/27/18 06:00 Medications: Current Medications Acetaminophen (Tylenol) 650 mg PO Q4H PRN PRN Reason: Headache/Fever/Mild Pain (1-3) Albuterol/Ipratropium (Duoneb) 3 ml NEB [id number] [facility] Last Admin: 02/21/19 18:38 Dose: 3 ml Aspirin (Ecotrin) 81 mg PO DAILY [facility] Last Admin: 02/21/19 10:57 Dose: 81 mg Atorvastatin Calcium (Lipitor) 10 mg PO HS [facility] Last Admin: 02/21/19 20:55 Dose: 10 mg Carvedilol (Coreg) 12.5 mg PO BID [facility] Last Admin: 02/21/19 20:55 Dose: 12.5 mg Cholecalciferol (Vitamin D) 400 units PO DAILY [facility] Dextrose/Water (Dextrose 50%) 25 gm SLOW IVP PRN PRN PRN Reason: Hypoglycemia Digoxin (Lanoxin) 0.125 mg PO DAILY [facility] Last Admin: 02/21/19 10:56 Dose: 0.125 mg Fluoxetine HCl (Prozac) 20 mg PO DAILY [facility] Last Admin: 02/21/19 10:57 Dose: 20 mg Furosemide (Lasix) 40 mg SLOW IVP 0600,1400 [facility] Last Admin: 02/21/19 15:34 Dose: 40 mg Glipizide (Glucotrol) 10 mg PO BID [facility] Last Admin: 02/21/19 20:55 Dose: 10 mg Glucagon (Glucagon) 1 mg IM PRN PRN PRN Reason: Hypoglycemia Heparin Sodium (Porcine) (Heparin) 5,000 units SC TID [facility] Last Admin: 02/21/19 20:55 Dose: 5,000 units Levofloxacin 750 mg/ Device 150 mls @ 100 mls/hr IVPB Q24HR [facility] Last Admin: 02/21/19 06:33 Dose: 150 mls Dextrose/Water (D5w) 1,000 mls @ 0 mls/hr IV .Q0M PRN PRN Reason: Hypoglycemia Insulin Human Lispro (Humalog) 0 units SC .MILD SLIDING SCALE PRN PRN Reason: Mild Correctional Scale Last Admin: 02/21/19 21:01 Dose: 5 unit Ondansetron HCl (Zofran Odt) 4 mg PO Q6H PRN PRN Reason: Nausea/Vomiting Ondansetron HCl (Zofran) 4 mg IVP Q6H PRN PRN Reason: Nausea/Vomiting Prednisone (Prednisone) 20 mg PO QAM[facility] Stop: 02/25/19 08:01 Spironolactone (Aldactone) 25 mg PO DAILY [facility] Last Admin: 02/21/19 10:56 Dose: 25 mg Sterile Water (Bacteriostatic Water) 1 ml FS PRN PRN PRN Reason: RECONSTITUTION
[2019-02-22] MEDS: HumaLOG 300 UNITS/3 ML VIAL SC PRN ×3 (05:59→21:57)
[2019-02-22] MEDS: Furosemide 40 MG/4 ML VIAL SLOW IVP SCH ×2 (06:04→12:44)
[2019-02-22] MEDS: Aspirin 81 mg Enteric Coated Tablet PO SCH (09:14)
[2019-02-22] MEDS: Carvedilol 25 MG TAB PO SCH ×2 (09:14→21:56)
[2019-02-22] MEDS: predniSONE 20 MG TAB PO SCH (09:14)
[2019-02-22] MEDS: Cholecalciferol (Vitamin D3) 400 UNITS TAB PO SCH (09:15)
[2019-02-22] MEDS: FLUoxetine HCl 20 MG CAP PO SCH (09:15)
[2019-02-22] MEDS: Heparin 5,000 UNITS/ML VIAL SC SCH ×3 (09:15→21:57)
[2019-02-22] MEDS: glipiZIDE 10 MG TAB PO SCH ×2 (09:15→21:56)
[2019-02-22] MEDS: Spironolactone 25 MG TAB PO SCH (09:15)
[2019-02-22] MEDS: Digoxin 0.125 MG TAB PO SCH (09:15)
[2019-02-22 09:38] LABS: #Eosinphils 0.1 thou/uL (0.0-0.7); #Lymphocytes 1.5 thou/uL (1.20-3.40); #Monocytes 0.5 thou/uL (0.11-0.59); #Neutrophils 8.4 thou/uL (1.40-6.50); %Basophils 0.4 % (0.0-1.0); %Eosinophils 1.4 % (0.0-10.0); %Monocytes 4.6 % (0.0-10.0); %Neutrophils 79.6 % (42.0-75.0); Mean Corpuscular HGB CONC 34.7 g/dL (32.0-36.0); Mean Corpuscular Hemoglobin 31.2 pg (27.0-31.0); Platelet Count 212 thou/uL (130-400); RBC Distribution Width 14.1 % (11.5-14.5); Red Blood Cell (RBC) Count 4.48 mill/uL (4.70-6.10); White Blood Cell (WBC) Count 10.5 thou/uL (4.8-10.8)
[2019-02-22 10:02] LABS: ALT (SGPT) 8 U/L (8-55); AST (SGOT) 10 U/L (5-34); Albumin 4.5 g/dL (3.5-5.0); Alkaline Phosphatase 62 U/L (40-150); Anion Gap 11 mmol/L (10-20); BUN (Urea Nitrogen) 19 mg/dL (8.9-20.6); Bilirubin, Total 0.7 mg/dL (0.2-1.2); Calc. Creatinine Clearance 106 mL/min (70-130); Calcium 10.8 mg/dL (7.8-10.44); Carbon Dioxide 32 mmol/L (22-29); Chloride 99 mmol/L (98-107); Estimated GFR-MDRD 72; Globulin 3.2 g/dL (2.4-3.5); Glucose 231 mg/dL (70-105); Potassium 4.1 mmol/L (3.5-5.1); Protein, Total 7.7 g/dL (6.0-8.3); Sodium 138 mmol/L (136-145)
[2019-02-22 12:34] LABS: Phosphorus 2.1 mg/dL (2.3-4.7)
--- NOTE | 2019-02-22 16:36 | PDOC.PN ---
- Subjective Encounter Start Date: 02/22/19 Encounter Start Time: 15:30 Subjective: Attempted to see patient 4 times today however not in room. -: States he goes for walks and sometimes to smoke. -: Denies any complaints and eager to go home. Awaiting Echo report. States he follows with Dr. Gotti but unable to get an appointment until Mid March. Had a run of Vtach x 8 beats, HR 150. Kept overnight to assess for further episodes. Also had echo requested. Last one done 07/2018. Per tele monitor, had run of VT x 10 beats, at 6:50am, HR 100. No further episodes since then. PM/AICD interrogated, showed 2 episodes of nonsustained Vtach (>170 HR) since it was last checked in October 2018, treated. Any episodes less than 150 not captured. - Objective Resuscitation Status - Order Detail: 02/20/19 03:57 Resuscitation Status Routine Resuscitation Status: FULL: Full Resuscitation Vital Signs & Weight: Vital Signs (12 hours) Temp Pulse Resp BP Pulse Ox 02/22/19 11:13 97.9 F 94 18 132/79 99 02/22/19 09:15 82 02/22/19 07:21 82 16 02/22/19 07:15 97.9 F 86 18 129/73 96 Weight Weight 230 lb 9.6 oz I&O: 02/21/19 02/22/19 02/23/19 06:59 06:59 06:59 Intake Total 1080 1570 Output Total 1000 950 725 Balance 80 620 -725 Result Diagrams: 02/22/19 08:50 02/22/19 08:50 Additional Labs: Accuchecks 02/22/19 02/22/19 02/21/19 10:28 04:17 21:02 POC Glucose 196 H 196 H 320 H 02/21/19 16:43 POC Glucose 225 H Phys Exam - Physical Examination Constitutional: NAD HEENT: PERRLA, moist MMs, sclera anicteric, oral pharynx no lesions Neck: no nodes, no JVD, supple, full ROM Respiratory: no wheezing, no rhonchi coarse sounds at bilateral bases Cardiovascular: RRR, no significant murmur, no rub Gastrointestinal: soft, non-tender, no distention, positive bowel sounds Musculoskeletal: no edema, pulses present Neurological: moves all 4 limbs Psychiatric: normal affect, A&O x 3 Skin: no rash, normal turgor Dx/Plan (1) SOB (shortness of breath) Code(s): R06.02 - SHORTNESS OF BREATH Status: Resolved (2) Non-sustained ventricular tachycardia Code(s): I47.2 - VENTRICULAR TACHYCARDIA Status: Acute (3) CHF (congestive heart failure) Code(s): I50.9 - HEART FAILURE, UNSPECIFIED Status: Chronic (4) Demand ischemia Code(s): I24.8 - OTHER FORMS OF ACUTE ISCHEMIC HEART DISEASE Status: Acute Comment: Secondary to CM, medical mgmt - Plan cont current plan of care Awaiting Echo. -: Patient asymptomatic. -: Consult placed to Cardiology per discussion with Dr. Grady. -: ADDENDUM: Echo shows stable EF (10-15%), now with severe LA dilation -: enlarged LV, and severe MR, otherwise no changes. * . Review of Systems - Review of Systems Constitutional: negative: fever, chills, sweats, weakness, malaise, other Eyes: negative: Pain, Vision Change, Conjunctivae Inflammation, Eyelid Inflammation, Redness, Other ENT: negative: Ear Pain, Ear Discharge, Nose Pain, Nose Discharge, Nose Congestion, Mouth Pain, Mouth Swelling, Throat Pain, Throat Swelling, Other Respiratory: Cough (chronic). negative: Dry, Shortness of Breath, Hemoptysis, SOB with Excertion, Pleuritic Pain, Sputum, Wheezing Cardiovascular: negative: chest pain, palpitations, orthopnea, paroxysmal nocturnal dyspnea, edema, light headedness, other Gastrointestinal: negative: Nausea, Vomiting, Abdominal Pain, Diarrhea, Constipation, Melena, Hematochezia, Other Genitourinary: negative: Dysuria, Frequency, Incontinence, Hematuria, Retention , Other Musculoskeletal: negative: Neck Pain, Shoulder Pain, Arm Pain, Back Pain, Hand Pain, Leg Pain, Foot Pain, Other Skin: negative: Rash, Lesions, Dez, Bruising, Other Neurological: negative: Weakness, Numbness, Incoordination, Change in Speech, Confusion, Seizures, Other - Medications/Allergies Allergies/Adverse Reactions: Allergies Allergy/AdvReac Type Severity Reaction Status Date / Time No Known Allergies Allergy Verified 10/27/18 06:00 Medications: Current Medications Acetaminophen (Tylenol) 650 mg PO Q4H PRN PRN Reason: Headache/Fever/Mild Pain (1-3) Albuterol/Ipratropium (Duoneb) 3 ml NEB [id number] [facility] Last Admin: 02/22/19 14:09 Dose: Not Given Aspirin (Ecotrin) 81 mg PO DAILY [facility] Last Admin: 02/22/19 09:14 Dose: 81 mg Atorvastatin Calcium (Lipitor) 10 mg PO HS [facility] Last Admin: 02/21/19 20:55 Dose: 10 mg Carvedilol (Coreg) 12.5 mg PO BID [facility] Last Admin: 02/22/19 09:14 Dose: 12.5 mg Cholecalciferol (Vitamin D) 400 units PO DAILY [facility] Last Admin: 02/22/19 09:15 Dose: 400 units Dextrose/Water (Dextrose 50%) 25 gm SLOW IVP PRN PRN PRN Reason: Hypoglycemia Digoxin (Lanoxin) 0.125 mg PO DAILY [facility] Last Admin: 02/22/19 09:15 Dose: 0.125 mg Fluoxetine HCl (Prozac) 20 mg PO DAILY [facility] Last Admin: 02/22/19 09:15 Dose: 20 mg Furosemide (Lasix) 40 mg SLOW IVP 0600,1400 [facility] Last Admin: 02/22/19 12:44 Dose: 40 mg Glipizide (Glucotrol) 10 mg PO BID [facility] Last Admin: 02/22/19 09:15 Dose: 10 mg Glucagon (Glucagon) 1 mg IM PRN PRN PRN Reason: Hypoglycemia Heparin Sodium (Porcine) (Heparin) 5,000 units SC TID [facility] Last Admin: 02/22/19 16:20 Dose: 5,000 units Levofloxacin 750 mg/ Device 150 mls @ 100 mls/hr IVPB Q24HR [facility] Last Admin: 02/22/19 06:10 Dose: 150 mls Dextrose/Water (D5w) 1,000 mls @ 0 mls/hr IV .Q0M PRN PRN Reason: Hypoglycemia Insulin Human Lispro (Humalog) 0 units SC .MILD SLIDING SCALE PRN PRN Reason: Mild Correctional Scale Last Admin: 02/22/19 05:59 Dose: 2 unit Ondansetron HCl (Zofran Odt) 4 mg PO Q6H PRN PRN Reason: Nausea/Vomiting Ondansetron HCl (Zofran) 4 mg IVP Q6H PRN PRN Reason: Nausea/Vomiting Prednisone (Prednisone) 20 mg PO QAM-WM [facility] Stop: 02/25/19 08:01 Last Admin: 02/22/19 09:14 Dose: 20 mg Spironolactone (Aldactone) 25 mg PO DAILY [facility] Last Admin: 02/22/19 09:15 Dose: 25 mg Sterile Water (Bacteriostatic Water) 1 ml FS PRN PRN PRN Reason: RECONSTITUTION
[2019-02-22] MEDS ORDERED: Aggrastat 12.5 MG/250 ML 0 ML ONE (17:23)
[2019-02-22] MEDS: Atorvastatin Calcium 10 MG TAB PO SCH (21:56)
[2019-02-23 00:57] LABS: Amphetamine Not Detected (NotDetected); Barbiturates Screen Not Detected (NotDetected); Benzodiazepine Screen Not Detected (NotDetected); Cocaine Metabolite Screen Not Detected (NotDetected); Medtox Control Line Valid? VALID (VALID); Medtox Reader # READER 1; Methadone Not Detected (NotDetected); Methamphetamine Not Detected (NotDetected); Opiate Screen Not Detected (NotDetected); Oxycodone Screen Not Detected (NotDetected); Phencyclidine (PCP) Not Detected (NotDetected); THC/Cannabinoid Screen Not Detected (NotDetected); Tricyclic Screen Not Detected (NotDetected)
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
[2019-02-23 05:22] LABS: #Basophils 0.1 thou/uL (0.0-0.2); #Eosinphils 0.3 thou/uL (0.0-0.7); #Lymphocytes 1.9 thou/uL (1.20-3.40); #Monocytes 0.7 thou/uL (0.11-0.59); #Neutrophils 6.9 thou/uL (1.40-6.50); %Basophils 0.6 % (0.0-1.0); %Eosinophils 3.2 % (0.0-10.0); %Lymphocytes 19.3 % (21.0-51.0); %Monocytes 6.9 % (0.0-10.0); Hemoglobin 13.8 g/dL (14.0-18.0); Mean Corpuscular HGB CONC 34.1 g/dL (32.0-36.0); Mean Corpuscular Hemoglobin 30.8 pg (27.0-31.0); Mean Corpuscular Volume 90.3 fL (78.0-98.0); Mean Platelet Volume 9.8 fL (7.4-10.4); Platelet Count 225 thou/uL (130-400); Red Blood Cell (RBC) Count 4.47 mill/uL (4.70-6.10); White Blood Cell (WBC) Count 9.9 thou/uL (4.8-10.8)
[2019-02-23 05:30] LABS: Anion Gap 10 mmol/L (10-20); BUN (Urea Nitrogen) 21 mg/dL (8.9-20.6); Calc. Creatinine Clearance 129 mL/min (70-130); Calcium 10.8 mg/dL (7.8-10.44); Carbon Dioxide 32 mmol/L (22-29); Chloride 103 mmol/L (98-107); Estimated GFR-MDRD 90; Glucose 139 mg/dL (70-105); Potassium 3.8 mmol/L (3.5-5.1); Sodium 141 mmol/L (136-145)
[2019-02-23] MEDS: Furosemide 40 MG/4 ML VIAL SLOW IVP SCH ×2 (06:05→14:05)
[2019-02-23] MEDS: glipiZIDE 10 MG TAB PO SCH (08:30)
[2019-02-23] MEDS: Carvedilol 25 MG TAB PO SCH (08:30)
[2019-02-23] MEDS: Aspirin 81 mg Enteric Coated Tablet PO SCH (08:30)
[2019-02-23] MEDS: predniSONE 20 MG TAB PO SCH (08:30)
[2019-02-23] MEDS: Digoxin 0.125 MG TAB PO SCH (08:31)
[2019-02-23] MEDS: Cholecalciferol (Vitamin D3) 400 UNITS TAB PO SCH (08:31)
[2019-02-23] MEDS: FLUoxetine HCl 20 MG CAP PO SCH (08:31)
[2019-02-23] MEDS: Spironolactone 25 MG TAB PO SCH (08:31)
[2019-02-23] MEDS: Heparin 5,000 UNITS/ML VIAL SC SCH ×2 (08:31→14:05)
[2019-02-23] MEDS ORDERED: Mag-Al Plus 1200 MG/1200 MG/120 MG/30 ML UDCUP PO PRN (11:19)
[2019-02-23 12:45] VITALS: BP 116/70; TEMP 97.9
--- NOTE | 2019-02-23 21:38 | DIS ---
DATE OF ADMISSION: 02/22/2019 DATE OF DISCHARGE: 02/23/2019 DISCHARGE DIAGNOSES: 1. Acute on chronic systolic congestive heart failure with ejection fraction of 10% to 15%. 2. Nonischemic cardiomyopathy with ejection fraction of 10% to 15%. 3. Nonsustained ventricular tachycardia with current AICD device in place, normal functioning device. 4. Demand ischemia secondary to #1 and #2. 5. Tobacco abuse ongoing. 6. Diabetes mellitus type 2. CONSULTATIONS: Dr. Gonzales with Cardiology Service. PERTINENT LAB AND X-RAY FINDINGS: Troponin I ranged between 0.366 to 0.397. BNP 994, previously noted 1314, 10/26/2018. TSH 1.46. CBC with hemoglobin of 14. Urine drug screen dated 02/22/2019, negative. Portable chest x-ray dated 02/19/2019, showed bilateral pulmonary edema. 2D transthoracic echocardiogram dated 02/21/2019, showed ejection fraction of 10% to 15%. Moderately enlarged right ventricular chamber. Severe left atrial enlargement. Severe mitral valve regurgitation. Moderate tricuspid regurgitation. HOSPITAL COURSE: The patient was initially admitted after presenting with increased shortness of breath in the context of known nonischemic cardiomyopathy with ejection fraction of 15%. The patient underwent chest imaging showing evidence of bilateral pulmonary edema with elevated BNP over 900. The patient was placed on IV Lasix and given oxygen supplementation. The patient was diuresing appropriately throughout the hospital course, however, weight changes did not reflect the actual diuresis. Symptomatically, the patient improved with diuretic therapy and was noted ambulating outside to smoke on multiple occasions during the hospital course. The patient was counseled regarding the need for smoking cessation and its relationship to current cardiomyopathy and heart failure. The patient was noted with nonsustained episodes of ventricular tachycardia. However, the patient's AICD device was normally functioning after interrogation. No specific evidence of AICD discharge was noted and patient remained clinically stable. Overall, the patient's vital signs remained stable and patient tolerated regular oral intake and ambulated without assistance or difficulty. I have examined the patient at the time of discharge and discussed followup instructions. The patient verbalized understanding and agreement ready for discharge on 02/23/2019. DISCHARGE MEDICATIONS: 1. Enteric-coated aspirin 81 mg p.o. daily. 2. Bumex 4 mg p.o. b.i.d. 3. Digoxin 125 mcg p.o. daily. 4. Uloric 80 mg p.o. daily. 5. Metformin 500 mg p.o. b.i.d. 6. Klor-Con 10 mEq p.o. daily. 7. Simvastatin 20 mg p.o. at bedtime. 8. Spironolactone 25 mg p.o. daily. 9. Coreg 12.5 mg p.o. b.i.d. 10. Fluoxetine 20 mg p.o. daily. 11. Glipizide 10 mg p.o. b.i.d. 12. Prednisone 20 mg p.o. daily x5 days. 13. Entresto 49/51 mg 1 tablet p.o. b.i.d. FOLLOWUP: The patient may follow up with Paola Hernandez on 02/26/2019 at 2:15 p.m. The patient will follow up with Dr. Felix Gotti with [facility]. The patient will follow up with Lashay Perea on 03/02/2019 at 10:30 a.m. with the [facility]. CONDITION ON DISCHARGE: Fair. ACTIVITY: Ad-balaji. DIET: Heart healthy, low-sodium and ADA. CODE STATUS: Full. DISPOSITION: Home, 02/23/2019. TIME SPENT: Total time preparing and coordinating discharge, 34 minutes. Job ID: [id number]
== END 2019-02-23 17:11 | disposition home or self-care (01) | DRG 291 ==
LOC: ERS 22:51 → 2SW 02-20 01:03 → ERHOLD 02-20 01:03 → 2SW 02-20 12:26 → OBSVTOIN 02-22 15:28 → 2NO 02-22 17:00
PROVIDERS: ADMIT Hospitalist; ATTEND Hospitalist
DX: I13.0 Hypertensive heart and chronic kidney disease with heart failure and stage 1 through stage 4 chronic kidney disease, or unspecified chronic kidney disease (principal); I50.23 Acute on chronic systolic (congestive) heart failure; I47.2 Ventricular tachycardia; I24.8 Other forms of acute ischemic heart disease; I25.5 Ischemic cardiomyopathy; J44.9 Chronic obstructive pulmonary disease, unspecified; E78.5 Hyperlipidemia, unspecified; N18.2 Chronic kidney disease, stage 2 (mild); M10.9 Gout, unspecified; E11.22 Type 2 diabetes mellitus with diabetic chronic kidney disease; F17.210 Nicotine dependence, cigarettes, uncomplicated; Z71.6 Tobacco abuse counseling; Z95.810 Presence of automatic (implantable) cardiac defibrillator
CPT/HCPCS: 36415; 36416; 71045; 80048; 80053; 80306; 82306; 82553; 83735; 83880; 83970; 84100; 84443; 84484; 85025; 93005; 93306; 93798; 94640; J1644; J1940; J1956; J2920; J3246; J7512; J7620

== ENCOUNTER 2019-04-25 00:56 | Emergency (ER) | payer MEDICAID, MEDICARE ==
[2019-04-25] MEDS ORDERED: Dexamethasone 10 MG/ML VIAL ONE (01:25)
[2019-04-25] MEDS ORDERED: HYDROcodone/Acetaminophen 5/325 mg Tablet ONE (01:25)
== END 2019-04-25 01:43 | disposition home or self-care (01) ==
LOC: ERS 00:56
DX: M10.9 Gout, unspecified (principal); I11.0 Hypertensive heart disease with heart failure; I50.9 Heart failure, unspecified; F17.210 Nicotine dependence, cigarettes, uncomplicated; E78.5 Hyperlipidemia, unspecified; E11.9 Type 2 diabetes mellitus without complications; Z79.84 Long term (current) use of oral hypoglycemic drugs; Z79.899 Other long term (current) drug therapy
CPT/HCPCS: 99283; J1100

== ENCOUNTER 2019-07-03 21:22 | Emergency (ER) | payer MEDICAID, MEDICARE ==
[2019-07-03] MEDS ORDERED: Ketorolac Tromethamine 60 MG/2 ML VIAL ONE (22:23)
== END 2019-07-03 22:48 | disposition home or self-care (01) ==
LOC: ERS 21:22
DX: M1A.9XX0 Chronic gout, unspecified, without tophus (tophi) (principal); I11.0 Hypertensive heart disease with heart failure; I50.9 Heart failure, unspecified; E11.9 Type 2 diabetes mellitus without complications; E78.5 Hyperlipidemia, unspecified; F17.210 Nicotine dependence, cigarettes, uncomplicated; Z79.899 Other long term (current) drug therapy
CPT/HCPCS: 96372; 99283; J1885

== ENCOUNTER 2019-07-16 17:27 | Inpatient (IN) | payer MEDICARE ==
[2019-07-16 18:07] LABS: #Basophils 0.1 thou/uL (0.0-0.2); #Eosinphils 0.2 thou/uL (0.0-0.7); #Lymphocytes 1.2 thou/uL (1.20-3.40); #Monocytes 0.2 thou/uL (0.11-0.59); #Neutrophils 2.1 thou/uL (1.40-6.50); %Basophils 1.7 % (0.0-1.0); %Eosinophils 4.2 % (0.0-10.0); %Lymphocytes 31.2 % (21.0-51.0); %Monocytes 5.9 % (0.0-10.0); Hemoglobin 13.6 g/dL (14.0-18.0); Mean Corpuscular Hemoglobin 30.9 pg (27.0-31.0); Mean Corpuscular Volume 88.1 fL (78.0-98.0); Mean Platelet Volume 10.9 fL (7.4-10.4); Platelet Count 138 thou/uL (130-400); RBC Distribution Width 15.2 % (11.5-14.5); Red Blood Cell (RBC) Count 4.42 mill/uL (4.70-6.10); White Blood Cell (WBC) Count 3.7 thou/uL (4.8-10.8)
--- NOTE | 2019-07-16 18:09 | RAD ---
XR Chest 1 View Portable History: Nausea and vomiting Comparison: Radiograph February 20, 2019 Findings: Heart size markedly enlarged. Moderate effusions. Moderate edema. No pneumothorax. 3-lead AICD/pacer is projecting over the right atrium, right ventricle, and coronary sinus. Impression: Findings of decompensated congestive heart failure.
[2019-07-16 18:37] LABS: Albumin 4.5 g/dL (3.5-5.0)
[2019-07-16 18:38] LABS: Calcium 10.2 mg/dL (7.8-10.44); Chloride 99 mmol/L (98-107); Potassium 4.1 mmol/L (3.5-5.1); Sodium 138 mmol/L (136-145)
[2019-07-16 18:39] LABS: Globulin 2.8 g/dL (2.4-3.5); Glucose 101 mg/dL (70-105); Protein, Total 7.3 g/dL (6.0-8.3)
[2019-07-16 18:41] LABS: Anion Gap 21 mmol/L (10-20); Bilirubin, Total 2.7 mg/dL (0.2-1.2); Carbon Dioxide 22 mmol/L (22-29)
[2019-07-16 18:42] LABS: Alkaline Phosphatase 55 U/L (40-110); Calc. Creatinine Clearance 0 mL/min (70-130); Estimated GFR-MDRD 24
[2019-07-16 18:43] LABS: BUN (Urea Nitrogen) 48 mg/dL (8.9-20.6)
[2019-07-16 18:44] LABS: AST (SGOT) 19 U/L (5-34)
[2019-07-16 18:45] LABS: ALT (SGPT) 7 U/L (8-55); CK (CPK) 192 U/L (30-200); Lipase 12 U/L (8-78)
[2019-07-16 18:58] LABS: CKMB 0.3 ng/mL (0-6.6)
[2019-07-16] MEDS ORDERED: Aspirin Chewable 81 MG TAB ONE (19:27)
[2019-07-16] MEDS ORDERED: Furosemide 40 MG/4 ML VIAL ONE (19:27)
[2019-07-16] MEDS ORDERED: Furosemide 20 MG/2 ML VIAL ONE (19:27)
[2019-07-16] MEDS ORDERED: Acetaminophen 650 MG Suppository PR PRN (21:49)
[2019-07-16] MEDS ORDERED: Acetaminophen 325 MG TAB PO PRN (21:49)
[2019-07-16] MEDS ORDERED: Ondansetron ODT 4 MG TAB PO PRN (21:49)
[2019-07-16] MEDS ORDERED: Ondansetron PF 4 MG/2 ML Vial IVP PRN (21:49)
[2019-07-16 22:19] LABS: Troponin I 0.228 ng/mL (< 0.028)
[2019-07-17 00:54] LABS: Troponin I 0.268 ng/mL (< 0.028)
[2019-07-17 03:51] LABS: #Eosinphils 0.2 thou/uL (0.0-0.7); #Lymphocytes 1.1 thou/uL (1.20-3.40); #Monocytes 0.2 thou/uL (0.11-0.59); #Neutrophils 2.4 thou/uL (1.40-6.50); %Basophils 1.1 % (0.0-1.0); %Eosinophils 5.7 % (0.0-10.0); %Lymphocytes 28.3 % (21.0-51.0); %Monocytes 5.2 % (0.0-10.0); %Neutrophils 59.7 % (42.0-75.0); Hemoglobin 13.2 g/dL (14.0-18.0); Mean Corpuscular HGB CONC 35.8 g/dL (32.0-36.0); Mean Corpuscular Hemoglobin 31.4 pg (27.0-31.0); Mean Corpuscular Volume 87.7 fL (78.0-98.0); Mean Platelet Volume 10.5 fL (7.4-10.4); Platelet Count 139 thou/uL (130-400); RBC Distribution Width 15.3 % (11.5-14.5); Red Blood Cell (RBC) Count 4.21 mill/uL (4.70-6.10)
[2019-07-17 04:11] LABS: Anion Gap 16 mmol/L (10-20); BUN (Urea Nitrogen) 48 mg/dL (8.9-20.6); Calc. Creatinine Clearance 0 mL/min (70-130); Calcium 10.4 mg/dL (7.8-10.44); Carbon Dioxide 28 mmol/L (22-29); Chloride 95 mmol/L (98-107); Estimated GFR-MDRD 27; Glucose 104 mg/dL (70-105); Potassium 3.3 mmol/L (3.5-5.1); Sodium 136 mmol/L (136-145)
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
[2019-07-17] MEDS ORDERED: Furosemide 40 MG/4 ML VIAL ONE ×2 (07:29→13:59)
[2019-07-17] MEDS: Furosemide 40 MG/4 ML VIAL SLOW IVP SCH ×2 (07:34→14:05)
[2019-07-17 09:17] LABS: #Eosinphils 0.2 thou/uL (0.0-0.7); #Lymphocytes 0.9 thou/uL (1.20-3.40); #Monocytes 0.3 thou/uL (0.11-0.59); #Neutrophils 2.7 thou/uL (1.40-6.50); %Basophils 0.9 % (0.0-1.0); %Eosinophils 4.4 % (0.0-10.0); %Lymphocytes 22.4 % (21.0-51.0); %Monocytes 6.5 % (0.0-10.0); %Neutrophils 65.7 % (42.0-75.0); Hemoglobin 13.4 g/dL (14.0-18.0); Mean Corpuscular HGB CONC 34.9 g/dL (32.0-36.0); Mean Corpuscular Hemoglobin 31.1 pg (27.0-31.0); Mean Platelet Volume 10.4 fL (7.4-10.4); Platelet Count 137 thou/uL (130-400); RBC Distribution Width 15.7 % (11.5-14.5); White Blood Cell (WBC) Count 4.1 thou/uL (4.8-10.8)
[2019-07-17] MEDS ORDERED: Potassium Chloride 20 MEQ TAB PO SCH ×2 (09:30→10:30)
[2019-07-17] MEDS ORDERED: Enoxaparin Sodium 40 MG/0.4 ML SYRINGE ONE (09:35)
[2019-07-17 09:36] LABS: Bilirubin Negative (Negative); Blood, Urine Negative (Negative); Glucose, Urine (Dipstick) Negative (Negative); Leukocyte Negative (Negative); Nitrite Negative (Negative); Protein, Urine (Dipstick) Negative (Neg-Trace)
[2019-07-17] MEDS ORDERED: Potassium Chloride 20 MEQ TAB ONE (09:37)
[2019-07-17 09:38] LABS: Anion Gap 15 mmol/L (10-20); BUN (Urea Nitrogen) 46 mg/dL (8.9-20.6); Calc. Creatinine Clearance 57 mL/min (70-130); Calcium 10.4 mg/dL (7.8-10.44); Carbon Dioxide 29 mmol/L (22-29); Chloride 97 mmol/L (98-107); Estimated GFR-MDRD 29; Glucose 85 mg/dL (70-105); Potassium 3.6 mmol/L (3.5-5.1); Sodium 137 mmol/L (136-145)
[2019-07-17 09:40] LABS: Clarity Clear (Clear)
[2019-07-17] MEDS: Enoxaparin Sodium 40 MG/0.4 ML SYRINGE SC SCH (09:43)
[2019-07-17 09:59] LABS: RBC/HPF 0-3 HPF (0-3); Squamous Epithelial 0-3 HPF (0-3); WBC/HPF 0-3 HPF (0-3)
--- NOTE | 2019-07-17 11:43 | ULT ---
BILATERAL RENAL ULTRASOUND: Date: 07/17/19 INDICATION: Chronic renal failure. FINDINGS: Right kidney measures 10.4 cm in length. Left kidney measures 11.5 cm in length. Both kidneys show in creased cortical echogenicity. Cortical thickness appears normally maintained. Small right renal cyst measures up to 1.5 cm. Small left renal cyst measures 0.8 cm. No hydronephrosis. Urinary bladder is distended and unremarkable. IMPRESSION: 1. Mild increased cortical echogenicity. 2. Small bilateral renal cysts. POS: [facility] [place]
--- NOTE | 2019-07-17 13:10 | PDOC.HOSPP ---
- Subjective Encounter Date: 07/17/19 Encounter Time: 10:45 Subjective: Mr. Watts was seen today in follow-up of CHF exacerbation. He says he is breathing better now. He denies chest pain. - Objective Vital Signs & Weight: Vital Signs (12 hours) Temp Pulse Resp BP Pulse Ox 07/17/19 12:30 97.6 F 65 16 102/73 96 Weight Weight 272 lb 0.807 oz I&O: 07/16/19 07/17/19 07/18/19 06:59 06:59 06:59 Intake Total 290 Output Total 600 Balance -310 Result Diagrams: 07/17/19 09:01 07/17/19 09:01 Hospitalist ROS - Medication Medications: Active Medications Generic Name Dose Route Start Last Admin Trade Name Freq PRN Reason Stop Dose Admin Enoxaparin Sodium 40 mg 07/17/19 09:00 07/17/19 09:43 Lovenox SC 40 mg 0900 BRANDI Administration Furosemide 40 mg 07/17/19 06:00 07/17/19 07:34 Lasix SLOW IVP 40 mg 0600,1400 BRANDI Administration Sodium Chloride 10 ml 07/17/19 09:00 07/17/19 09:43 Flush - Normal Saline IVF 10 ml Q12HR BRANDI Administration - Exam Eye: PERRL, anicteric sclera Heart: RRR, no murmur, no gallops, no rubs, normal peripheral pulses Respiratory: CTAB, no wheezes, no rales, no ronchi, normal chest expansion Gastrointestinal: soft, non-tender, non-distended, normal bowel sounds, no palpable masses, no hepatomegaly, no splenomegaly Extremities: no cyanosis, no clubbing, no edema Psychiatric: normal affect, normal behavior, A&O x 3 Hosp A/P (1) Acute on chronic kidney failure Code(s): N17.9 - ACUTE KIDNEY FAILURE, UNSPECIFIED; N18.9 - CHRONIC KIDNEY DISEASE, UNSPECIFIED Status: Acute (2) Acute on chronic systolic (congestive) heart failure Code(s): I50.23 - ACUTE ON CHRONIC SYSTOLIC (CONGESTIVE) HEART FAILURE Status : Acute (3) Hypertension Code(s): I10 - ESSENTIAL (PRIMARY) HYPERTENSION Status: Chronic (4) Diabetes mellitus type 2 in nonobese Code(s): E11.9 - TYPE 2 DIABETES MELLITUS WITHOUT COMPLICATIONS Status: Chronic - Plan * Acute on chronic systolic heart failure- better compensated- he admits that he was out of his diuretics for a few weeks * Cardiology has been consulted * Acute kidney injury- this could be cardiorenal mediated.- Nephrology has been consulted, and a renal ultrasound was done. There was no hydrnephrosis, but the kidneys do demonstrate findings consistent with chronic medical kidney disease * HTN- blood pressure has a bit low- will monitor may need to hold Carvediolol * DM- blood glucose is stable- will hold Metformin and add a SSI
[2019-07-17] MEDS ORDERED: Dextrose 5% in Water 1,000 ML IV PRN (13:15)
[2019-07-17] MEDS ORDERED: HumaLOG 300 UNITS/3 ML VIAL SC PRN ×2 (13:15)
[2019-07-17] MEDS ORDERED: Dextrose 50% Abboject 50 ML SYRINGE SLOW IVP PRN (13:15)
--- NOTE | 2019-07-17 15:31 | CON ---
DATE OF CONSULTATION: HISTORY OF PRESENT ILLNESS: Mr. Watts is a 44-year-old black male, who was admitted for shortness of breath. He was found to have exacerbation of CHF. During the initial evaluation, he was noted to be also in acute kidney injury. REVIEW OF SYSTEMS: Positive for shortness of breath. No chest pain. No syncopal episode. Appetite and energy level are decreased. No leg edema. No nausea. No vomiting. No abdominal pain. No new skin rash. No joint pains. No productive cough. No fever or chills. No hematochezia. No melena. No hematemesis. HOME MEDICATIONS: Includes, 1. Prednisone 20 mg q.a.m. 2. Metformin 500 mg p.o. b.i.d. 3. Glipizide 1 tab b.i.d. 4. Spironolactone 25 mg once a day. 5. Simvastatin 20 mg tablet at bedtime. 6. Sacubitril/valsartan-49/51 one tablet b.i.d. 7. KCl 10 mEq once a day. 8. Uloric 80 mg tablet once a day. 9. Prozac 1 capsule daily. 10. Digoxin 0.125 mg once a day. 11. Carvedilol 12.5 mg p.o. b.i.d. 12. Bumex 4 mg p.o. b.i.d. 13. Aspirin 81 mg daily. PAST MEDICAL HISTORY: Type 2 diabetes mellitus, recent diagnosis of acute kidney injury, congestive heart failure/cardiomyopathy, hyperlipidemia. PAST SURGICAL HISTORY: Status post cardiac cath, status post AICD placement. SOCIAL HISTORY: The patient is single, lives alone, lives in [place]. He has 6 children. Smokes one pack a day for the last 19 years. Alcohol rarely. Education, 10th grade. 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 No IV drug use. ALLERGIES: NONE. TRAUMA: None. IMMUNIZATION: Up-to-date. HOSPITALIZATION: Please see past medical history. FAMILY HISTORY: Positive family history of ESRD-mother was on dialysis. PHYSICAL EXAMINATION: VITAL SIGNS: Blood pressure 99/60, heart rate 70, pulse oximetry 91%. GENERAL: Awake, comfortable, not in overt distress. SKIN: Adequate turgor. HEENT: He has pinkish conjunctivae. Anicteric sclerae. NECK: No neck mass. No carotid bruits. No JVD. CHEST: No deformities. LUNGS: Decreased breath sounds. HEART: Normal sinus rhythm. No murmurs, no gallops, no rubs. ABDOMEN: Globular, soft, nontender. No masses. EXTREMITIES: No edema. No deformities. LABORATORY DATA: Laboratories of July 17, 2019; white count 4, hemoglobin 13.2. Sodium 136, potassium 3.3, chloride 95, carbon dioxide 20, BUN 48, creatinine 3.06, glucose 104, calcium 10.4. July 16, 2019; BUN 48, creatinine 3.4. February 23, 2019; BUN 21, creatinine 1.08. IMAGING STUDIES: Chest x-ray of July 16, 2019, shows decompensated congestive heart failure. Cardiac echo, February 22, 2019, decreased EF 10% to 15%. ASSESSMENT AND PLAN: 1. Congestive heart failure. Agree with current IV diuretics. Fluid removal as tolerated. 2. Acute kidney injury-most likely a hemodynamically-mediated renal dysfunction secondary to the congestive heart failure and secondary to the recent use of Entresto. Agree to hold off the Entresto. Continue IV diuretics. There is no indication for any dialytic intervention. 3. Mild hypokalemia. P.r.n. potassium replacement. 4. We will order urinalysis, renal ultrasound, and recheck basic metabolic profile and CBC in a.m. Thank you for the consult. We will continue to follow. Job ID: [id number]
[2019-07-17] MEDS: glipiZIDE 10 MG TAB PO SCH (17:42)
[2019-07-17] MEDS: Carvedilol 25 MG TAB PO SCH (20:13)
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
--- NOTE | 2019-07-18 02:45 | CON ---
DATE OF CONSULTATION: 07/17/2019 INDICATION FOR CONSULTATION: This is a 44-year-old gentleman with severe end-stage cardiomyopathy. He has had AICD implant. He has nonischemic cardiomyopathy. He had been doing relatively well. He was recently in the hospital. I saw him back in February of this year, but had been placed on medications. He has multiple risk factors of coronary artery disease and he does have nonischemic cardiomyopathy. He was visiting with his sisters and they thought he was not doing very well. He did have some abdominal bloating, but no lower extremity edema. He denied having any significant short of breath, but decided he would come to the hospital after he did apparently have some shortness of breath at least according to him, but he denied any chest pain. When he arrived, he appeared to be in some CHF exacerbation with acute renal insufficiency. His BNP was 2462 and creatinine was 2.91. Previously had been doing very well. He recently has been taking Entresto, and for whatever reason, perhaps he became dehydrated uncertain, but then apparently the kidney function seems to have become an issue now, but he denies any chest pain and cardiac enzymes are indeterminate at 0.228 and then increased up to 0.268, which would not be unusual with someone in this severe cardiomyopathy and some congestive heart failure. His sodium was 137, potassium was 3.7, and hemoglobin was 13.4. PAST MEDICAL HISTORY: Refer the notes dictated by the nurse practitioner, Blayne Holloway. SOCIAL HISTORY: Refer the notes dictated by the nurse practitioner, Blayne Holloway. FAMILY HISTORY: Refer the notes dictated by the nurse practitioner, Blayne Holloway. REVIEW OF SYSTEMS: Refer the notes dictated by the nurse practitioner, Blayne Holloway. MEDICATIONS: Refer the notes dictated by the nurse practitioner, Blayne Holloway. I have reviewed his medications and Dr. Pelaez has also seen the patient and we will continue with the diuresis. However, Dr. Pelaez will have to assist with his acute renal insufficiency or acute renal failure. ALLERGIES: REFER THE NOTES DICTATED BY THE NURSE PRACTITIONER, BLAYNE HOLLOWAY. PHYSICAL EXAMINATION: GENERAL: A well-developed, well-nourished gentleman, no acute distress. VITAL SIGNS: His blood pressure is 97/63. He is afebrile. Heart rate is in the 60s and shows a sinus rhythm at this time. He is pacing actually at times, A paced, V sensed. O2 saturation 96%. HEENT: Unremarkable. CHEST: Actually clear to auscultation. I did not hear any rales, rhonchi or wheezing at this time. CARDIOVASCULAR: Regular rate and rhythm. He has a well-healed surgical incision over the AICD site underneath the left infraclavicular area. ABDOMEN: Soft. He does have some mild bloating and mild tenderness, otherwise did not see any significant abnormalities. Most likely has some liver engorgement or otherwise appears to be relatively stable. Bowel sounds are present. EXTREMITIES: No clubbing, cyanosis or edema. Pedal pulses are present. NEUROLOGICAL: Neurologically, he appears to be intact. He is walking in the hallways. Neurologically, he seems also to be intact. LABORATORY DATA: Pertinent as noted above. IMPRESSION: 1. Congestive heart failure exacerbation with a history of nonischemic cardiomyopathy. He is status post automatic implantable cardioverter-defibrillator implant. He likely has diastolic dysfunction. We will continue with diuresis and also fluid restrict the patient. Further care will be by Dr. Gotti when he sees the patient tomorrow for adjusting his medications. We will hold the TEVIN inhibitor, Entresto at this time due to the increase in the creatinine. 2. Type 2 diabetes, which will be dealt with by the primary care service. 3. Most likely type 2 myocardial infarction with elevated cardiac enzymes. This is most likely due to demand ischemia. 4. Hyperlipidemia. I suggest he would continue with statin medications. 5. History in the past of nonsustained ventricular tachycardia. At this time, he has been stable. He does have occasional premature ventricular contractions, but appears to be otherwise stable. I have reviewed his medications and would agree with the continuation of the beta-blockers as well as digoxin as well as the IV Lasix and see whether or not we can get some diuresis on the patient without further damaging the kidneys. Job ID: [id number]
[2019-07-18 05:33] LABS: Anion Gap 12 mmol/L (10-20); BUN (Urea Nitrogen) 47 mg/dL (8.9-20.6); Calc. Creatinine Clearance 54 mL/min (70-130); Calcium 10.5 mg/dL (7.8-10.44); Carbon Dioxide 31 mmol/L (22-29); Chloride 99 mmol/L (98-107); Estimated GFR-MDRD 35; Glucose 95 mg/dL (70-105); Potassium 3.4 mmol/L (3.5-5.1); Sodium 139 mmol/L (136-145)
[2019-07-18] MEDS: Furosemide 40 MG/4 ML VIAL SLOW IVP SCH ×2 (05:56→15:07)
[2019-07-18] MEDS: Carvedilol 25 MG TAB PO SCH ×2 (08:58→21:47)
[2019-07-18] MEDS: Enoxaparin Sodium 40 MG/0.4 ML SYRINGE SC SCH (08:59)
[2019-07-18] MEDS: glipiZIDE 10 MG TAB PO SCH ×2 (08:59→17:38)
[2019-07-18] MEDS: Spironolactone 25 MG TAB PO SCH (08:59)
[2019-07-18 09:18] LABS: Cardiac Risk 4.1 (Less than 4.5)
[2019-07-18 09:20] LABS: Digoxin 0.72 ng/mL (0.8-2.0)
[2019-07-18] MEDS: Digoxin 0.125 MG TAB PO SCH (09:39)
--- NOTE | 2019-07-18 09:41 | PRG ---
DATE OF SERVICE: 07/18/2019 SUBJECTIVE: Mr. Watts is a 44-year-old black male, who was seen by the Renal Service for his acute kidney injury. He initially came with CHF. He is breathing better. He is currently on diuretic regimen. We were consulted initially for management of his acute kidney injury. Creatinine is slightly improved today. The patient denies any chest pain or any worsening shortness of breath. OBJECTIVE: VITAL SIGNS: Blood pressure 108/65, heart rate 66, respiratory rate 18, temperature 97.7, pulse ox 93%. GENERAL EXAM: Awake, alert, and comfortable, not in distress. SKIN: Adequate turgor. HEENT: Pinkish conjunctivae. Anicteric sclerae. NECK: No neck mass. No carotid bruits. No JVD. CHEST: No deformities. LUNGS: Decreased breath sounds. HEART: Normal sinus rhythm. No murmur. No gallops or rubs. ABDOMEN: Globular, soft, nontender. No masses. EXTREMITIES: No edema. No deformities. MEDICATIONS: Medications of July 18, 2019, was reviewed. LABORATORY DATA: Laboratories of July 17, 2019, white count 4.1, hemoglobin 13.4. July 18, 2019, sodium 139, potassium 3.4, chloride 99, carbon dioxide 31, BUN 47, creatinine 2.44, calcium 10.5. July 17, 2019, renal ultrasound, small bilateral renal cyst, mild increased cortical echogenicity. Urinalysis, no protein, no red cells, no white cells. ASSESSMENT AND PLAN: 1. Congestive heart failure-history of decreased ejection fraction. Continue current diuretic regimen. Continue supportive care. 2. Acute kidney injury-possibility of hemodynamically-mediated renal dysfunction. Continue to optimize cardiac status. Agree with current IV diuretic regimen. There is no indication for any dialytic intervention. Continue to hold off Entresto. We will recheck CBC and basic metabolic panel in the morning. Job ID: [id number]
[2019-07-18 12:57] VITALS: BMI 30.4
--- NOTE | 2019-07-18 17:33 | PDOC.HOSPP ---
- Subjective Encounter Date: 07/18/19 Encounter Time: 17:31 Subjective: Mr. Watts was seen today in follow-up of CHF exacerbation. He is feeling better. He says he is breathing better, and denies having any chest pain. - Objective Vital Signs & Weight: Vital Signs (12 hours) Temp Pulse Resp BP BP Pulse Ox 07/18/19 12:00 97.5 F L 71 15 101/60 95 07/18/19 09:39 74 07/18/19 08:00 97.6 F 74 16 107/67 100 Weight Admit Weight 219 lb 3.2 oz Weight 218 lb 5 oz I&O: 07/17/19 07/18/19 07/19/19 06:59 06:59 06:59 Intake Total 1170 Output Total 1000 Balance 170 Result Diagrams: 07/17/19 09:01 07/18/19 04:55 Additional Labs: Accuchecks 07/18/19 07/18/19 07/17/19 10:42 06:06 20:28 POC Glucose 201 H 104 176 H Hospitalist ROS - Medication Medications: Active Medications Generic Name Dose Route Start Last Admin Trade Name Freq PRN Reason Stop Dose Admin Carvedilol 12.5 mg 07/17/19 21:00 07/18/19 08:58 Coreg PO 12.5 mg BID BRANDI Administration Digoxin 0.125 mg 07/18/19 09:00 07/18/19 09:39 Lanoxin PO 0.125 mg DAILY BRANDI Administration Enoxaparin Sodium 40 mg 07/17/19 09:00 07/18/19 08:59 Lovenox SC 40 mg 0900 BRANDI Administration Furosemide 40 mg 07/17/19 06:00 07/18/19 15:07 Lasix SLOW IVP 40 mg 0600,1400 BRANDI Administration Glipizide 10 mg 07/17/19 16:30 07/18/19 08:59 Glucotrol PO 10 mg BID-AC BRANDI Administration Sodium Chloride 10 ml 07/17/19 09:00 07/18/19 09:00 Flush - Normal Saline IVF 10 ml Q12HR BRANDI Administration Sodium Chloride 10 ml 07/17/19 06:05 07/18/19 15:07 Flush - Normal Saline IVF 10 ml PRN PRN Administration Saline Flush Spironolactone 25 mg 07/18/19 09:00 07/18/19 08:59 Aldactone PO 25 mg DAILY BRANDI Administration - Exam Eye: PERRL, anicteric sclera Neck: supple, symmetric, no JVD Heart: RRR, no murmur, no gallops, no rubs, normal peripheral pulses Respiratory: CTAB (decreased breath sounds at the bases), no wheezes, no rales, no ronchi, normal chest expansion Gastrointestinal: soft, non-tender, non-distended, normal bowel sounds, no palpable masses, no hepatomegaly, no splenomegaly, no bruit Extremities: no cyanosis, no clubbing, no edema Psychiatric: normal affect, normal behavior, A&O x 3 Hosp A/P (1) Acute on chronic kidney failure Code(s): N17.9 - ACUTE KIDNEY FAILURE, UNSPECIFIED; N18.9 - CHRONIC KIDNEY DISEASE, UNSPECIFIED Status: Acute (2) Acute on chronic systolic (congestive) heart failure Code(s): I50.23 - ACUTE ON CHRONIC SYSTOLIC (CONGESTIVE) HEART FAILURE Status : Acute (3) Hypertension Code(s): I10 - ESSENTIAL (PRIMARY) HYPERTENSION Status: Chronic (4) Diabetes mellitus type 2 in nonobese Code(s): E11.9 - TYPE 2 DIABETES MELLITUS WITHOUT COMPLICATIONS Status: Chronic - Plan * Acute on chronic systolic heart failure-diuresing well, will continue Lasix * Entresto is on hold due to acute kidney injury * Cardiology input appreciated * Acute kidney injury- likley cardiorenal mediated, and this is improving with diureses * HTN- blood pressure is stable * DM- blood glucose is stable- continue to hold Metformin
[2019-07-18] MEDS ORDERED: Simvastatin 20 MG TAB PO SCH (21:00)
[2019-07-18] MEDS: Nystatin/Triamcinolone Cream 15 GM TUBE TOP SCH (21:46)
[2019-07-18] MEDS: Atorvastatin Calcium 10 MG TAB PO SCH (21:47)
[2019-07-19] MEDS ORDERED: hydrALAZINE 20 MG/ML VIAL ONE (05:31)
[2019-07-19] MEDS: Furosemide 40 MG/4 ML VIAL SLOW IVP SCH (06:06)
[2019-07-19 06:37] LABS: #Eosinphils 0.3 thou/uL (0.0-0.7); #Lymphocytes 1.2 thou/uL (1.20-3.40); #Monocytes 0.4 thou/uL (0.11-0.59); #Neutrophils 2.1 thou/uL (1.40-6.50); %Basophils 0.9 % (0.0-1.0); %Lymphocytes 28.4 % (21.0-51.0); %Monocytes 10.6 % (0.0-10.0); %Neutrophils 52.2 % (42.0-75.0); Hemoglobin 13.9 g/dL (14.0-18.0); Mean Corpuscular HGB CONC 34.9 g/dL (32.0-36.0); Mean Corpuscular Hemoglobin 31.2 pg (27.0-31.0); Mean Corpuscular Volume 89.3 fL (78.0-98.0); Mean Platelet Volume 10.4 fL (7.4-10.4); Platelet Count 159 thou/uL (130-400); RBC Distribution Width 16.1 % (11.5-14.5); Red Blood Cell (RBC) Count 4.46 mill/uL (4.70-6.10)
[2019-07-19 06:55] LABS: Anion Gap 12 mmol/L (10-20); BUN (Urea Nitrogen) 35 mg/dL (8.9-20.6); Calc. Creatinine Clearance 66 mL/min (70-130); Calcium 10.7 mg/dL (7.8-10.44); Carbon Dioxide 31 mmol/L (22-29); Chloride 98 mmol/L (98-107); Estimated GFR-MDRD 46; Glucose 111 mg/dL (70-105); Potassium 3.3 mmol/L (3.5-5.1); Sodium 138 mmol/L (136-145)
[2019-07-19] MEDS ORDERED: Potassium Chloride 20 MEQ TAB PO SCH (08:45)
--- NOTE | 2019-07-19 09:28 | PRG ---
DATE OF SERVICE: 07/19/2019 SUBJECTIVE: Mr. Watts is a 44-year-old black male, who was admitted for CHF. He has been receiving IV diuretics. We were consulted for his acute kidney injury. The acute kidney injury is a hemodynamically-mediated renal dysfunction. He is feeling better. Renal function is slowly improving. No other complaints. OBJECTIVE: VITAL SIGNS: Blood pressure 101/60, heart rate 67, respiratory rate 20, temperature 98, and pulse ox 94%. GENERAL: Awake, alert, comfortable, not in distress. SKIN: Adequate turgor. HEENT: He has pinkish conjunctivae. Anicteric sclerae. NECK: No neck mass. No carotid bruits. No JVD. CHEST: No deformities. LUNGS: Clear breath sounds. HEART: Normal sinus rhythm. No murmur. No gallops. No rubs. ABDOMEN: Globular, soft, nontender, no masses. EXTREMITIES: No edema, no deformities. MEDICATIONS: July 19, 2019, reviewed. LABORATORY DATA: July 19, 2019, white count 4, hemoglobin 13.9. Sodium 138, potassium 3.3, chloride 98, carbon dioxide 31, BUN 35, creatinine 1.95, glucose 111, calcium 10.7. ASSESSMENT AND PLAN: 1. Acute kidney injury-hemodynamically mediated renal dysfunction. This is most likely secondary to congestive heart failure and from his sacubitril . Continue current management. Currently, on Demadex. No indication for any dialytic intervention. 2. Congestive heart failure, clinically much improved. Cardiology is following. We will recheck CBC, basic metabolic profile. Job ID: [id number]
[2019-07-19] MEDS: Bumetanide 1 MG TAB PO SCH ×2 (09:32→17:13)
[2019-07-19] MEDS: glipiZIDE 10 MG TAB PO SCH ×2 (09:34→17:13)
[2019-07-19] MEDS: Carvedilol 25 MG TAB PO SCH ×2 (09:34→20:12)
[2019-07-19] MEDS: Digoxin 0.125 MG TAB PO SCH (09:35)
[2019-07-19] MEDS: Enoxaparin Sodium 40 MG/0.4 ML SYRINGE SC SCH (09:36)
[2019-07-19] MEDS: Nystatin/Triamcinolone Cream 15 GM TUBE TOP SCH ×2 (09:38→20:09)
[2019-07-19] MEDS: Spironolactone 25 MG TAB PO SCH (09:41)
--- NOTE | 2019-07-19 14:15 | PDOC.HOSPP ---
- Subjective Encounter Date: 07/19/19 Encounter Time: 14:13 Subjective: Mr. Watts was seen today in follow-up of CHF exacerbation and acute kidney injury. He does not have any new complaints. - Objective Vital Signs & Weight: Vital Signs (12 hours) Temp Pulse Resp BP BP Pulse Ox 07/19/19 12:00 99.6 F 75 16 113/70 07/19/19 09:35 67 07/19/19 08:00 97.7 F 67 18 100/62 100 07/19/19 04:00 98.0 F 67 20 101/60 94 L Weight Admit Weight 219 lb 3.2 oz Weight 213 lb 8 oz I&O: 07/18/19 07/19/19 07/20/19 06:59 06:59 06:59 Intake Total 1170 970 Output Total 1000 550 Balance 170 420 Result Diagrams: 07/19/19 06:14 07/19/19 06:14 Additional Labs: Accuchecks 07/19/19 07/19/19 07/18/19 12:38 05:38 21:27 POC Glucose 229 H 134 H 180 H 07/18/19 16:56 POC Glucose 89 Hospitalist ROS - Medication Medications: Active Medications Generic Name Dose Route Start Last Admin Trade Name Freq PRN Reason Stop Dose Admin Atorvastatin Calcium 10 mg 07/18/19 21:00 07/18/19 21:47 Lipitor PO 10 mg HS BRANDI Administration Bumetanide 2 mg 07/19/19 07:30 07/19/19 09:32 Bumex PO 2 mg BID-AC BRANDI Administration Carvedilol 12.5 mg 07/17/19 21:00 07/19/19 09:34 Coreg PO 12.5 mg BID BRANDI Administration Digoxin 0.125 mg 07/18/19 09:00 07/19/19 09:35 Lanoxin PO 0.125 mg DAILY BRANDI Administration Enoxaparin Sodium 40 mg 07/17/19 09:00 07/19/19 09:36 Lovenox SC 40 mg 0900 BRANDI Administration Glipizide 10 mg 07/17/19 16:30 07/19/19 09:34 Glucotrol PO 10 mg BID-AC BRANDI Administration Insulin Human Lispro 0 units 07/17/19 13:15 07/19/19 12:40 Humalog SC 4 unit .MODERATE SLIDING SC PRN Administration Moderate Correctional Scale Nystatin/Triamcinolone Acetonide 1 gm 07/18/19 21:00 07/19/19 09:38 Mycogen Ii Cream TOP 1 applic BID BRANDI Administration Sodium Chloride 10 ml 07/17/19 09:00 07/19/19 09:39 Flush - Normal Saline IVF 10 ml Q12HR BRANDI Administration Sodium Chloride 10 ml 07/17/19 06:05 07/18/19 15:07 Flush - Normal Saline IVF 10 ml PRN PRN Administration Saline Flush Spironolactone 25 mg 07/18/19 09:00 07/19/19 09:41 Aldactone PO 25 mg DAILY BRANDI Administration - Exam Eye: PERRL, anicteric sclera Heart: RRR, no murmur, no gallops, no rubs, normal peripheral pulses Respiratory: CTAB, no wheezes, no rales, no ronchi, normal chest expansion Gastrointestinal: soft, non-tender, non-distended, normal bowel sounds, no palpable masses, no hepatomegaly, no splenomegaly Extremities: no cyanosis, no clubbing, no edema Psychiatric: normal affect, normal behavior, A&O x 3 Hosp A/P (1) Acute on chronic kidney failure Code(s): N17.9 - ACUTE KIDNEY FAILURE, UNSPECIFIED; N18.9 - CHRONIC KIDNEY DISEASE, UNSPECIFIED Status: Acute (2) Acute on chronic systolic (congestive) heart failure Code(s): I50.23 - ACUTE ON CHRONIC SYSTOLIC (CONGESTIVE) HEART FAILURE Status : Acute (3) Hypertension Code(s): I10 - ESSENTIAL (PRIMARY) HYPERTENSION Status: Chronic (4) Diabetes mellitus type 2 in nonobese Code(s): E11.9 - TYPE 2 DIABETES MELLITUS WITHOUT COMPLICATIONS Status: Chronic (5) Gout Code(s): M10.9 - GOUT, UNSPECIFIED Status: Acute - Plan * Acute on chronic systolic heart failure-patient has been changed to Bumex, and lasix has been discontinued * Entresto is on hold due to acute kidney injury * Cardiology input appreciated- continued adjustments in his medications * Acute kidney injury- continues to improve. * HTN- blood pressure is stable * DM- blood glucose is a bit elevated- his renal function has improved- will therefore re-start Metformin
[2019-07-19] MEDS: metFORMIN 500 MG TAB PO SCH (17:13)
[2019-07-19] MEDS: Atorvastatin Calcium 10 MG TAB PO SCH (20:08)
[2019-07-19] MEDS: Tamsulosin HCl 0.4 MG CAP PO SCH (20:09)
[2019-07-20 06:21] LABS: #Eosinphils 0.3 thou/uL (0.0-0.7); #Lymphocytes 1.1 thou/uL (1.20-3.40); #Monocytes 0.4 thou/uL (0.11-0.59); #Neutrophils 2.1 thou/uL (1.40-6.50); %Basophils 1.2 % (0.0-1.0); %Eosinophils 6.7 % (0.0-10.0); %Monocytes 9.2 % (0.0-10.0); Mean Corpuscular HGB CONC 35.7 g/dL (32.0-36.0); Mean Corpuscular Hemoglobin 31.8 pg (27.0-31.0); Mean Corpuscular Volume 89.1 fL (78.0-98.0); Mean Platelet Volume 10.6 fL (7.4-10.4); Platelet Count 173 thou/uL (130-400); RBC Distribution Width 15.7 % (11.5-14.5); Red Blood Cell (RBC) Count 4.39 mill/uL (4.70-6.10); White Blood Cell (WBC) Count 3.8 thou/uL (4.8-10.8)
[2019-07-20 06:36] LABS: Anion Gap 13 mmol/L (10-20); BUN (Urea Nitrogen) 33 mg/dL (8.9-20.6); Calc. Creatinine Clearance 66 mL/min (70-130); Calcium 10.6 mg/dL (7.8-10.44); Carbon Dioxide 29 mmol/L (22-29); Chloride 98 mmol/L (98-107); Estimated GFR-MDRD 46; Glucose 78 mg/dL (70-105); Potassium 3.7 mmol/L (3.5-5.1); Sodium 136 mmol/L (136-145)
[2019-07-20] MEDS: metFORMIN 500 MG TAB PO SCH ×2 (09:12→16:25)
[2019-07-20] MEDS: Spironolactone 25 MG TAB PO SCH (09:12)
[2019-07-20] MEDS: Bumetanide 1 MG TAB PO SCH ×2 (09:12→16:25)
[2019-07-20] MEDS: Allopurinol 100 MG TAB PO SCH (09:12)
[2019-07-20] MEDS: glipiZIDE 10 MG TAB PO SCH ×2 (09:12→16:25)
[2019-07-20] MEDS: Digoxin 0.125 MG TAB PO SCH (09:12)
[2019-07-20] MEDS: Enoxaparin Sodium 40 MG/0.4 ML SYRINGE SC SCH (09:13)
[2019-07-20] MEDS: Nystatin/Triamcinolone Cream 15 GM TUBE TOP SCH ×2 (09:13→20:52)
[2019-07-20] MEDS: FLUoxetine HCl 20 MG CAP PO SCH (09:13)
[2019-07-20] MEDS: Carvedilol 6.25 MG TAB PO SCH ×2 (09:26→16:25)
--- NOTE | 2019-07-20 09:47 | PRG ---
DATE OF SERVICE: 07/20/2019 SUBJECTIVE: Mr. Watts is a 44-year-old black male, who was admitted for CHF and acute kidney injury. His medications were adjusted. He is off his Entresto. No new complaints today. His shortness of breath is much improved. OBJECTIVE: VITAL SIGNS: Blood pressure 108/75, heart rate 68, respiratory rate 16, temperature 97.5, pulse ox 98%. GENERAL: Awake, alert, comfortable, not in distress. SKIN: Adequate turgor. HEENT: Pinkish conjunctivae, anicteric sclerae. NECK: No neck mass. No carotid bruits. No JVD. CHEST: No deformities. LUNGS: Clear breath sounds. No wheezing. No crackles. HEART: Normal sinus rhythm. No murmurs, gallops, or rubs. ABDOMEN: Globular, soft, nontender, no masses. EXTREMITIES: No edema, no deformities. MEDICATIONS: Of July 20, 2019, was reviewed. LABORATORY DATA: July 20, 2019, white count 3.8, hemoglobin 14. Sodium 136, potassium 3.7, chloride 98, carbon dioxide 29, BUN 33, creatinine 1.95, glucose 78, calcium is 10.6. ASSESSMENT AND PLAN: 1. Mild hyperkalemia, resolved. 2. Congestive heart failure-spironolactone restarted. Continue to optimize hemodynamics. Cardiology is following. 3. Acute kidney injury-superimposed hemodynamically-mediated renal dysfunction. Continue supportive care. There is no indication for any dialytic intervention with this patient. Overall, prognosis remains guarded. Job ID: [id number]
--- NOTE | 2019-07-20 10:54 | PDOC.HOSPP ---
- Subjective Encounter Date: 07/20/19 Encounter Time: 10:53 Subjective: Mr. Watts was seen today in follow-up of CHF exacerbation. He does not have any new complaints. He denies dyspnea or chest pain. - Objective Vital Signs & Weight: Vital Signs (12 hours) Temp Pulse Resp BP Pulse Ox 07/20/19 09:09 97.5 F L 68 16 108/75 98 07/20/19 03:30 98.4 F 65 18 100/55 L 94 L Weight Admit Weight 219 lb 3.2 oz Weight 212 lb 5 oz I&O: 07/19/19 07/20/19 07/21/19 06:59 06:59 06:59 Intake Total 970 860 Output Total 550 950 Balance 420 -90 Result Diagrams: 07/20/19 05:21 07/20/19 05:21 Additional Labs: Accuchecks 07/20/19 07/19/19 07/19/19 05:30 20:50 16:31 POC Glucose 99 124 H 147 H 07/19/19 12:38 POC Glucose 229 H Hospitalist ROS - Medication Medications: Active Medications Generic Name Dose Route Start Last Admin Trade Name Arthurq PRN Reason Stop Dose Admin Allopurinol 100 mg 07/20/19 09:00 07/20/19 09:12 Zyloprim PO 100 mg DAILY BRANDI Administration Atorvastatin Calcium 10 mg 07/18/19 21:00 07/19/19 20:08 Lipitor PO 10 mg HS BRANDI Administration Bumetanide 2 mg 07/19/19 07:30 07/20/19 09:12 Bumex PO 2 mg BID-AC BRANDI Administration Carvedilol 6.25 mg 07/20/19 08:00 07/20/19 09:26 Coreg PO 6.25 mg BID-WM BRANDI Administration Digoxin 0.125 mg 07/18/19 09:00 07/20/19 09:12 Lanoxin PO 0.125 mg DAILY BRANDI Administration Enoxaparin Sodium 40 mg 07/17/19 09:00 07/20/19 09:13 Lovenox SC 40 mg 0900 BRANID Administration Fluoxetine HCl 20 mg 07/20/19 09:00 07/20/19 09:13 Prozac PO 20 mg DAILY BRANDI Administration Glipizide 10 mg 07/17/19 16:30 07/20/19 09:12 Glucotrol PO 10 mg BID-AC BRANDI Administration Insulin Human Lispro 0 units 07/17/19 13:15 07/19/19 12:40 Humalog SC 4 unit .MODERATE SLIDING SC PRN Administration Moderate Correctional Scale Metformin HCl 500 mg 07/19/19 17:00 07/20/19 09:12 Glucophage PO 500 mg BID-WM BRANDI Administration Nystatin/Triamcinolone Acetonide 1 gm 07/18/19 21:00 07/20/19 09:13 Mycogen Ii Cream TOP 1 applic BID BRANDI Administration Sodium Chloride 10 ml 07/17/19 09:00 07/20/19 09:13 Flush - Normal Saline IVF 10 ml Q12HR BRANDI Administration Sodium Chloride 10 ml 07/17/19 06:05 07/18/19 15:07 Flush - Normal Saline IVF 10 ml PRN PRN Administration Saline Flush Spironolactone 25 mg 07/18/19 09:00 07/20/19 09:12 Aldactone PO 25 mg DAILY BRANDI Administration Tamsulosin HCl 0.4 mg 07/19/19 21:00 07/19/19 20:09 Flomax PO 0.4 mg QPM BRANDI Administration - Exam Eye: PERRL, anicteric sclera Heart: RRR (+ S3), no rubs, normal peripheral pulses Respiratory: CTAB, no wheezes, no rales, no ronchi, normal chest expansion, no tachypnea, normal percussion Gastrointestinal: soft, non-tender, non-distended, normal bowel sounds, no palpable masses, no hepatomegaly, no splenomegaly Extremities: no cyanosis, no clubbing, no edema Psychiatric: normal affect, normal behavior, A&O x 3 Hosp A/P (1) Acute on chronic systolic (congestive) heart failure Code(s): I50.23 - ACUTE ON CHRONIC SYSTOLIC (CONGESTIVE) HEART FAILURE Status : Acute (2) Acute on chronic kidney failure Code(s): N17.9 - ACUTE KIDNEY FAILURE, UNSPECIFIED; N18.9 - CHRONIC KIDNEY DISEASE, UNSPECIFIED Status: Acute (3) Hypertension Code(s): I10 - ESSENTIAL (PRIMARY) HYPERTENSION Status: Chronic (4) Diabetes mellitus type 2 in nonobese Code(s): E11.9 - TYPE 2 DIABETES MELLITUS WITHOUT COMPLICATIONS Status: Chronic (5) Gout Code(s): M10.9 - GOUT, UNSPECIFIED Status: Acute - Plan * Acute on chronic systolic heart failure-continues to improve * Entresto is on hold due to acute kidney injury * Cardiology input appreciated- continued adjustments in his medications * Acute kidney injury- renal function has stabilized * HTN- blood pressure - low normal * DM- blood glucose is stable * Disposition as per Cardiology
[2019-07-20] MEDS: Atorvastatin Calcium 10 MG TAB PO SCH (20:52)
[2019-07-20] MEDS: Tamsulosin HCl 0.4 MG CAP PO SCH (20:52)
[2019-07-21 08:30] LABS: Anion Gap 13 mmol/L (10-20); BUN (Urea Nitrogen) 29 mg/dL (8.9-20.6); Calc. Creatinine Clearance 74 mL/min (70-130); Calcium 10.8 mg/dL (7.8-10.44); Carbon Dioxide 28 mmol/L (22-29); Chloride 100 mmol/L (98-107); Estimated GFR-MDRD 52; Glucose 100 mg/dL (70-105); Potassium 3.9 mmol/L (3.5-5.1); Sodium 137 mmol/L (136-145)
[2019-07-21] MEDS: Digoxin 0.125 MG TAB PO SCH (09:35)
[2019-07-21] MEDS: Carvedilol 6.25 MG TAB PO SCH ×2 (09:35→16:55)
[2019-07-21] MEDS: glipiZIDE 10 MG TAB PO SCH ×2 (09:35→16:54)
[2019-07-21] MEDS: Allopurinol 100 MG TAB PO SCH (09:35)
[2019-07-21] MEDS: FLUoxetine HCl 20 MG CAP PO SCH (09:35)
[2019-07-21] MEDS: Bumetanide 1 MG TAB PO SCH ×2 (09:35→16:55)
[2019-07-21] MEDS: Nystatin/Triamcinolone Cream 15 GM TUBE TOP SCH (09:36)
[2019-07-21] MEDS: metFORMIN 500 MG TAB PO SCH ×2 (09:36→16:55)
[2019-07-21] MEDS: Spironolactone 25 MG TAB PO SCH (09:36)
[2019-07-21] MEDS: Enoxaparin Sodium 40 MG/0.4 ML SYRINGE SC SCH (09:36)
--- NOTE | 2019-07-21 10:20 | PRG ---
DATE OF SERVICE: 07/21/2019 SERVICE: Renal Medicine. SUBJECTIVE: Mr. Watts is a 44-year-old black male with cardiomyopathy and admitted for CHF exacerbation. He was also noted to be in acute kidney injury. Adjustment with his medications was made. His renal function has been stabilizing and improving. His shortness of breath has much improved. OBJECTIVE: VITAL SIGNS: Blood pressure 111/72, heart rate 81, respiratory rate 16, temperature 97.9, and pulse ox 98%. GENERAL: Awake, alert, comfortable, not in distress, sitting. HEENT: Pinkish conjunctivae. Anicteric sclerae. NECK: No neck mass. No carotid bruits. No JVD. CHEST: No deformities. LUNGS: Clear breath sounds. No wheezing. No crackles. HEART: Normal sinus rhythm. No murmur. No gallops. No rubs. ABDOMEN: Globular, soft, nontender. No masses. EXTREMITIES: No edema. MEDICATIONS: Of July 21, 2019, were reviewed. LABORATORY DATA: Laboratories of July 20, 2019; hemoglobin 14. On July 21, 2019, sodium 137, potassium 3.9, chloride 100, carbon dioxide 28, BUN 29, creatinine 1.74, and calcium 10.8. Renal ultrasound shows mild increased echogenicity and no obstruction. ASSESSMENT AND PLAN: 1. Acute kidney injury - consider hemodynamically-mediated renal dysfunction, secondary to his congestive heart failure and from the use of his other nephrotoxic medications. He is currently on low-dose Bumex and spironolactone. He seems to be tolerating this. Agree with current management. No indication for any dialytic intervention. 2. Congestive heart failure/cardiomyopathy. Continue supportive care on bumetanide and spironolactone. Currently holding TEVIN inhibitors and ARB. From a Renal point of view, if he is discharged, we will follow him up at the [facility]. 3. Agree with current management. Job ID: [id number]
[2019-07-21 15:36] VITALS: BP 113/71; TEMP 97.8
[2019-07-21 16:28] LABS: Anion Gap 13 mmol/L (10-20); BUN (Urea Nitrogen) 28 mg/dL (8.9-20.6); Calc. Creatinine Clearance 78 mL/min (70-130); Calcium 11.3 mg/dL (7.8-10.44); Carbon Dioxide 28 mmol/L (22-29); Chloride 99 mmol/L (98-107); Estimated GFR-MDRD 54; Glucose 98 mg/dL (70-105); Potassium 3.9 mmol/L (3.5-5.1); Sodium 136 mmol/L (136-145)
[2019-07-21] MEDS ORDERED: Bupropion 150 MG SR TAB PO SCH (21:00)
[2019-07-21] MEDS ORDERED: Simvastatin 20 MG TAB PO SCH (21:00)
--- NOTE | 2019-07-22 00:12 | EKG ---
Test Reason : Blood Pressure : / mmHG Vent. Rate : 076 BPM Atrial Rate : 076 BPM P-R Int : 226 ms QRS Dur : 156 ms QT Int : 422 ms P-R-T Axes : 061 018 083 degrees QTc Int : 474 ms Atrial-sensed ventricular-paced rhythm with prolonged AV conduction Abnormal ECG Confirmed by ELLIS MEYER ([id number]), book editor HOPE COY ([id number]) on 07/22/2019 12:12:09 AM Referred By: Confirmed By:ELLIS MEYER
--- NOTE | 2019-07-23 06:49 | PQF ---
[facility] [employer] Cytology [employer] SMITA Gotti KRYSTENDERRICK QING MACDONALD MD [id number] CLINICAL DOCUMENTATION CLARIFICATION FORM: POST DISCHARGE Addendum to original discharge summary date: ____ Late entry note date: __ DATE: 07/23/2019 ATTN: QING MACDONALD MD Please exercise your independent, professional judgment in responding to the clarification form. Clinical indicators are provided on the bottom of this form for your review Please check appropriate box(s): [ ] NSTEMI type 2 was significant condition [ ] NSTEMI type 2 was not significant condition [ x] Other diagnosis __acute renal failure [ ] Unable to determine In addition, please specify: Present on Admission (POA): [ ] Yes [ ] No [x ] Unable to determine CLINICAL INDICATORS - SIGNS / SYMPTOMS / LABS Troponin level 0.123 on 07/16 and 0.268 on 07/17 - Documented in laboratory results SOB with exertion and chest tightness - Documented in H&P on 07/16 by Joshua Moran NSTEMI type 2 secondary to underlying CHF exacerbation -Documented in H&P on by Joshua Moran Patient troponin have remained stable in the range 0.1 to 0.2 - Documented in H& P on 07/16 by Joshua Moran CK-MB(CK-2) 0.3 - Documented in laboratory results Elevated cardiac enzymes this is most likely due to demand ischemia - Documented in Consultation note on 07/19 by joy Sanchez MD RISKS: MAGY - Documented in H&P on 07/16 by Joshua Moran CHF ecacerbation - Documented in H&P on 07/16 by Joshua Moran TREATMENTS: We will monitor and treat accordingly - Documented in H&P on 07/16 by Joshua Moran Continuation of the beta blockers as well as gigoxin as well as IV lasix - Documented in Consultation note on 07/19 by joy Sanchez MD Consultation (This form is maintained as a part of the permanent medical record) 2014 [employer]. All Rights Reserved [email or web address] [not provided] MTDD
--- NOTE | 2019-07-23 12:06 | DIS ---
DATE OF ADMISSION: 07/16/2019 DATE OF DISCHARGE: 07/21/2019 DISCHARGE DIAGNOSES: 1. Acute on chronic systolic heart failure. 2. Acute on chronic kidney failure. 3. Hypertension. 4. Diabetes. 5. Gout. 6. New diagnosis of primary hyperparathyroidism. HOSPITAL COURSE: The patient is a 44-year-old male, who initially presented to the hospital on 07/17 with complaints of shortness of breath. Please look at the H and P for further details. The patient also at that time was found to have an elevated creatinine, which was thought to be most likely cardiorenal. The patient was seen by Cardiology and Nephrology. He underwent change of medications and also diuresis, which he did really well. The patient did have a renal ultrasound done on 07/17, which indicated mild increased cortical echogenicity and small bilateral renal cysts. The patient was found to have hypercalcemia and also PTH was checked, PTH was high. I did discuss this with the Nephrology, who stated discharged the patient home and followup as an outpatient. I also educated the patient about these findings and stated that he will need an ultrasound of thyroid gland next week. The patient is to follow up with his primary and also with Cardiology. HOME MEDICATIONS: 1. Allopurinol 1 tablet p.o. daily. 2. Bupropion 150 mg b.i.d. 3. Tamsulosin 0.4 daily. 4. Aspirin 81 mg daily. 5. Bumex 2 mg b.i.d. 6. Fluoxetine 1 capsule daily. 7. Metformin 500 mg b.i.d. 8. Glipizide 1 tablet b.i.d. 9. Spironolactone 25 mg daily. 10. Digoxin 125 mcg daily. 11. Carvedilol 6.25 b.i.d. 12. Atorvastatin 10 mg p.o. at bedtime. His Entresto was discontinued due to his creatinine being elevated. His creatinine on discharge was 1.68. His initial creatinine on admission was 3.40. His intact PTH was 324 and his calcium was 11.3. PHYSICAL EXAMINATION: VITAL SIGNS: Temperature 97.8, pulse 80, respiratory rate 16, oxygen saturation 100% on room air, and blood pressure 113/71. GENERAL: He is awake, alert, and oriented x3. Does not appear in distress. CV: S1, S2 present. No murmurs, rubs, or gallops. ABDOMEN: Soft, nontender. Bowel sounds present x2. Again, he will be discharged home with followup with his primary and also I have told him to follow up with Nephrology as outpatient. Job ID: [id number]
== END 2019-07-21 18:15 | disposition home or self-care (01) | DRG 682 ==
LOC: ERS 17:27 → ERHOLD 19:50 → 2NO 07-17 16:25
PROVIDERS: ADMIT Hospitalist; ATTEND Hospitalist
DX: N17.9 Acute kidney failure, unspecified (principal); I50.23 Acute on chronic systolic (congestive) heart failure; I13.0 Hypertensive heart and chronic kidney disease with heart failure and stage 1 through stage 4 chronic kidney disease, or unspecified chronic kidney disease; N18.9 Chronic kidney disease, unspecified; E78.5 Hyperlipidemia, unspecified; E11.22 Type 2 diabetes mellitus with diabetic chronic kidney disease; F17.210 Nicotine dependence, cigarettes, uncomplicated; E87.6 Hypokalemia; M10.9 Gout, unspecified; Z95.810 Presence of automatic (implantable) cardiac defibrillator; Z79.82 Long term (current) use of aspirin; Z79.899 Other long term (current) drug therapy; Z71.6 Tobacco abuse counseling
CPT/HCPCS: 36415; 36416; 71045; 76770; 80048; 80053; 80061; 80162; 81001; 82306; 82550; 82553; 83690; 83880; 83970; 84484; 85025; 93005; 93010; 94760; 96374; J0360; J1650; J1940